=== PATIENT | female | born 1955 | race Caucasian/White ===

== ENCOUNTER → 2021-09-05 10:56 | Outpatient (CLI) | payer MEDICARE, BC, SELFPAY ==
--- NOTE | ~2021-09-05 | DEXA_ITS ---
Bone Density Report Name: Janelle Berry Age: 66 Sex: Female Ethnicity: White Date of : 1955 Indication: postmenopausal; screening for osteoporosis; hysterectomy; Referring Provider: BENNETT, ELLIE Lauren Study: Bone densitometry was performed. Exam Date: September 05, 2021 Accession number: [id number] Bone Density: Region BMD T-score Z-score Classification AP Spine (L1-L4) 1.017 -0.3 1.6 Normal Femoral Neck (Left) 0.713 -1.2 0.4 Osteopenia Total Hip (Left) 0.919 -0.2 1.2 Normal Femoral Neck (Right) 0.707 -1.3 0.3 Osteopenia Total Hip (Right) 0.874 -0.6 0.8 Normal Total Hip Mean 0.897 -0.4 1.0 Normal World Health Organization criteria for BMD impression classify patients as: Normal (T-score at or above -1.0), Osteopenia (T-score between -1.0 and -2.5), or Osteoporosis (T-score at or below -2.5). 10-year Fracture Risk(1): Major Osteoporotic Fracture 8.4% Hip Fracture 0.8% Reported Risk Factors: [place] (), Neck BMD=0.707, BMI=33.9 (1) FRAX(R) Version 3.08. Fracture probability calculated for an untreated patient. Fracture probability may be lower if the patient has received treatment. Previous Exams: Region Exam Age BMD T-score BMD Change BMD Change Date g/cm2 vs Baseline vs Previous AP Spine(L1-L4) 09/05/2021 66 1.017 -0.3 -0.055* 0.042* 08/13/2018 63 0.976 -0.6 -0.097* 0.033* 08/07/2016 61 0.942 -1.0 -0.130* -0.083* 07/15/2013 57 1.026 -0.2 -0.047* -0.010 10/29/2009 54 1.036 -0.1 -0.037* -0.037* 03/16/2006 50 1.072 0.2 Total Hip(Left) 09/05/2021 66 0.919 -0.2 -0.085* 0.031* 08/13/2018 63 0.889 -0.4 -0.116* -0.042* 08/07/2016 61 0.931 -0.1 -0.074* -0.104* 07/15/2013 57 1.034 0.8 0.030* 0.079* 10/29/2009 54 0.955 0.1 -0.049* -0.049* 03/16/2006 50 1.004 0.5 Total Hip(Right) 09/05/2021 66 0.874 -0.6 -0.091* 0.030* 08/13/2018 63 0.844 -0.8 -0.121* -0.022 08/07/2016 61 0.866 -0.6 -0.099* -0.115* 07/15/2013 57 0.981 0.3 0.016 0.032* 10/29/2009 54 0.949 0.1 -0.016 -0.016 03/16/2006 50 0.965 0.2 *Denotes significance at 95% confidence level, LSC for AP Spine = 0.022 g/cm2, LSC for Total Hip = 0.027 g/cm2 Clinical Information Provided by Patient:
== END ==
PROVIDERS: PCP Internal Medicine; Visit Provider Internal Medicine
DX: Z78.0 Asymptomatic menopausal state (principal); M81.0 Age-related osteoporosis without current pathological fracture; M85.89 Other specified disorders of bone density and structure, multiple sites
CPT/HCPCS: 77080

== ENCOUNTER 2022-02-20 12:39 | Inpatient (IN) | payer MEDICARE, BC, SELFPAY ==
[2022-02-20] VITALS (14 sets, daily range): BP systolic 133–156; BP diastolic 60–74; PULSE 54–68; RESP 6–18; TEMP 36–36.8; O2SAT 97–100; BMI 33.2
--- NOTE | ~2022-02-20 | CT_ITS ---
EXAMINATION: CT brain wo con DATE: 02/20/2022 14:37 INDICATION: Syncope. Head injury. TECHNIQUE: Computed tomography (CT) of the head was performed without intravenous contrast. The mA wa s adjusted according to patient size. Iterative reconstruction technique was employed. The dose-lengt h product was 605.33 mGy-cm. COMPARISON: None FINDINGS: There is no intracranial hemorrhage, acute infarction, or abnormal intracranial mass lesion . There are scattered areas of low attenuation in the cerebral white matter, which is within normal l imits for the patient's age. The ventricles are normal in size. The orbits are normal. There is mild mucosal thickening in the ethmoid sinuses. There is a small right mastoid effusion. IMPRESSION: 1. Normal aging brain. Reviewed, dictated and finalized at location A. IMPRESSION: 1. Normal aging brain.
--- NOTE | ~2022-02-20 | XR_ITS ---
EXAMINATION: XR chest 2V DATE: 02/20/2022 14:05 INDICATION: Weakness. TECHNIQUE: Frontal and lateral views of the chest were obtained. COMPARISON: Chest 2 views 12/07/2008 FINDINGS: There is chronic mild elevation of right hemidiaphragm. There is mild atelectasis at the roland ng bases. No pleural effusion or pneumothorax. The heart size is normal. There is a moderate-sized hi atal hernia. Surgical clips in the right upper quadrant are likely from cholecystectomy. IMPRESSION: 1. Mild atelectasis at the lung bases. 2. Moderate-sized hiatal hernia. Reviewed, dictated and finalized at location A.
--- NOTE | 2022-02-20 12:45 | ECG_ITS ---
Measurements Intervals [place] Rate: 61 P: 49 GA: 155 QRS: -42 QRSD: 94 T: -2 QT: 409 QTc: 414 Interpretive Statements SINUS RHYTHM LEFTWARD AXIS LOW QRS VOLTAGE IN PRECORDIAL LEADS PATTERN CONSISTENT WITH PULMONARY DISEASE NO PREVIOUS ECG AVAILABLE FOR COMPARISON Electronically Signed On 02-20-2022 15:53:05 CDT by Isaias Cordova M.D.
--- NOTE | 2022-02-20 13:00 | PC.NURSE ---
Infection Control Nurse notified. No further precautions needed after speaking with Infection Control.
[2022-02-20 13:23] LABS: Basophils Percent Auto 0.3 % (0.2-1.2); Eosinophils Absolute Auto 0.1 K/mm3 (0-0.3); Eosinophils Percent Auto 0.6 % (0-4.4); Hematocrit 43.5 % (37.0-47.0); Hemoglobin 15.2 g/dL (12.0-15.0); Immature Granulocyte Absolute 0.05 K/mm3 (0.00-0.031); Immature Granulocyte Percent A 0.4 % (0-0.5); Lymphocytes Absolute Auto 2.45 K/mm3 (0.9-3.2); Lymphocytes Percent Auto 19.8 % (18.3-44.2); Mean Corpuscular HGB Conc 34.9 g/dl (32-36); Mean Corpuscular Volume 85.8 fl (80-100); Mean Platelet Volume 9.6 fl (7.4-10.4); Monocytes Absolute Auto 1.2 K/mm3 (0.1-0.6); Monocytes Percent Auto 9.4 % (2.6-8.5); Neutrophils Absolute Auto 8.6 K/mm3 (1.3-6.7); Neutrophils Percent Auto 69.5 % (45.5-73.1); Platelet Count Result 323 k/mm3 (150-375); Red Blood Count 5.07 M/mm3 (4.2-5.4); Red Cell Distribution Width 13.3 % (11.5-14.5); White Blood Count 12.4 K/mm3 (4.5-10.0)
[2022-02-20 13:50] LABS: Alanine Aminotransferase 37 U/L (4-35); Albumin Level 4.1 g/dL (3.5-5.1); Alkaline Phosphatase 98 U/L (38-126); Anion Gap 12 mmol/L (8-16); Aspartate Amino Transferase 40 U/L (14-36); Bilirubin,Total 0.8 mg/dL (0.2-1.3); Blood Urea Nitrogen 55 mg/dL (7-17); Calcium 8.8 mg/dL (8.4-10.2); Carbon Dioxide 26 mmol/L (22-30); Chloride 97 mmol/L (98-107); Estimated CRCL calculation 18 ml/min; Estimated Glomerular Filt Rate 18; Glucose 125 mg/dL (65-110); Potassium 2.7 mmol/L (3.4-5.0); Sodium 135 mmol/L (137-145)
--- NOTE | 2022-02-20 14:19 | ED.GENADULT ---
HPI - General Adult General Chief complaint: Fall Stated complaint: fall, struck head, LOC Time Seen by Provider: 02/20/22 14:06 Source: patient and RN notes reviewed Mode of arrival: ambulatory Limitations: no limitations History of Present Illness HPI narrative: This is a 66 year old female with history of hypertension who presents for evaluation of weakness. Patient developed nausea, vomiting and diarrhea 2-3 days ago when she was out of the country. Her vomiting and diarrhea lasted for 24 hours, and she denies having vomiting or diarrhea today. She is having nausea with eating and drinking. She denies abdominal pain, fever, chills, chest pain or shortness of breath. she does reports weakness with walking. She also states 2 days ago she fell and she hit her head. She still has posterior headache after falling. She rates her headache as 6/10. Related Data Home Medications Medication Instructions Recorded Confirmed omeprazole 40 mg capsule,delayed 40 mg PO DAILY PRN 08/24/21 02/20/22 release quinapril 40 mg tablet 40 mg PO HS 08/24/21 02/20/22 simvastatin 40 mg/5 mL (8 mg/mL) 40 mg PO HS 08/24/21 02/20/22 oral suspension fluticasone propionate 1 spray INTRANASAL BID PRN 02/20/22 02/20/22 Allergies Allergy/AdvReac Type Severity Reaction Status Date / Time No Known Allergies Allergy Unknown Verified 02/20/22 17:48 Review of Systems Review of Systems: All systems reviewed & are unremarkable except as noted in HPI and below PMFSH Past Medical History Medical History (Updated 02/20/22 @ 21:32 by Sona Howard MD) Hypertension Family History Family History (Updated 08/24/21 @ 11:01 by Eveline Catalan) Father Skin cancer Hypertension Sibling Hypertension Grandparent Diabetes mellitus Grandparent No problems noted. Social History Social History (Updated 08/24/21 @ 10:59 by Eveline Catalan) Smoking status: Never smoker Second hand tobacco smoke exposure: Yes ( prior to November 2021) Alcohol intake: current Drinks per week: 0 Alcohol use details: one mixed drink per year Substance use: never Spiritual care concerns: No Exam Const: General: no acute distress and alert Orientation/consciousness: patient oriented x3 Eyes: EOM: EOMs intact bilaterally Resp: Effort & Inspection: normal respiratory effort and no retractions Auscultation: clear to auscultation bilaterally Cardio: Rate: regular rate Rhythm: regular rhythm Heart sounds: no murmurs GI: GI Palp: Yes Soft to palpation, No Tenderness to palpation present (GI) and No Guarding due to palpation present (GI) Auscultation: normal bowel sounds : General: Yes no CVA tenderness Back/Spine/Pelvis: Back: no CVA tenderness Skin: General skin exam: normal color Rashes: no rashes Neuro: General: patient oriented x3, moves all extremities and CN's II-XI intact bilaterally Psych: Mental Status: mental status grossly normal Affect: normal affect Course Reevaluation(s) Reevaluation #1: I Discussed with patient that she will need to be admitted for acute kidney failure, dehydration. She denies any abdominal pain and her exam is benign. No imaging of abdomen needed at this time. she will receive IVF with potassium supplementation. Date: 02/20/22 Vital Signs Vital signs: Vital Signs Temperature 96.8 F L 02/20/22 12:42 Pulse Rate 67 02/20/22 12:42 Respiratory Rate 14 02/20/22 12:42 Blood Pressure 156/69 H 02/20/22 12:42 Pulse Oximetry 98 02/20/22 12:42 Temperature 96.8 F L 02/20/22 12:42 Pulse Rate 64 02/20/22 16:45 Respiratory Rate 16 02/20/22 16:45 Blood Pressure 137/74 02/20/22 16:01 Pulse Oximetry 98 02/20/22 16:45 Medical Decision Making Vital Signs Vital Signs: Vital Signs Temperature 96.8 F L 02/20/22 12:42 Pulse Rate 67 02/20/22 12:42 Respiratory Rate 14 02/20/22 12:42 Blood Pressure 156/69 H 02/20/22 12:42 Pulse Oxim
--- NOTE | 2022-02-20 14:27 | PC.NURSE ---
Pt in ct
[2022-02-20] MEDS: ONDANSETRON INJ 4 MG/2 ML VIAL IV PUSH (14:43)
[2022-02-20] MEDS: PANTOPRAZOLE SODIUM IV 40 MG VIAL IV PUSH (14:43)
[2022-02-20] MEDS: LACTATED RINGERS 1,000 ML 999 ML IV CONT (14:43)
[2022-02-20] MEDS: POTASSIUM CHLORIDE INJ 40 MEQ in SODIUM CHLORIDE 0.9% IV 500 ML 130 MEQ IVPB (14:44)
[2022-02-20] MEDS: POTASSIUM CHLORIDE 20 MEQ TABLET 40 MEQ PO (14:44)
[2022-02-20 15:03] LABS: Add Urine Microscopic? YES; Appearance Urine Cloudy (Clear); Bacteria Urine Trace /hpf; Bilirubin Urine Negative (Negative); Blood Urine 1+ (Negative); Color Urine Yellow (Yellow); Glucose Urine UA Negative (Negative); Ketones Urine Negative (Negative); Leukocyte Esterase Ur 3+ LEU/UL (Negative); Mucus Urine Rare /lpf; Nitrate Urine Negative (Negative); Protein Urine Negative (Negative); Specific Grav Ur 1.009 (1.001-1.035); Squamous Epithelial Cell Urine Many /hpf (Few); Urobilinogen Urine Negative mg/dL (<2.0); WBC Urine 31-50 /hpf
--- NOTE | 2022-02-20 16:42 | PC.NURSE ---
Attempted report, RN refused
--- NOTE | 2022-02-20 17:30 | PM.IMHP ---
H&P: HPI History of Present Illness Date/Time: 02/20/22 17:30 Chief Complaint: Weakness. Narrative: This is a 66-year-old female with hypertension, hyperlipidemia, and history of breast cancer who presented to the emergency department from home for evaluation of weakness. She was recently in [facility] and while there she developed GI symptoms including nausea and vomiting last and profuse diarrhea all day on Sunday. She was not able to really stay hydrated or eat much for couple of days and she reports having a syncopal episode on Sunday afternoon at her hotel in which she struck the back of her head. She was able to get some veln-aqb-aalyshd medications to help with her symptoms and she traveled back to the [place] late Sunday evening. Despite no longer having vomiting or diarrhea, she continues to feel extremely weak and fatigued. She has been getting lightheaded and dizzy with position changes, especially when standing up. Her appetite has not returned. She has also noticed a decrease in urine output. Today her labs show an increase in BUN and creatinine in did give of an acute kidney injury and she is being admitted in this setting for rehydration. She denies fever, chills, sweats, chest pain, shortness of breath, and dysuria. Review of Systems Review of Systems: Twelve systems were reviewed and are negative except for as per HPI. [facility] Past Medical History Medical History (Updated 02/20/22 @ 22:23 by Chelita Michele PA-C) Cancer of right breast (2008) Status post wide excision and chemoradiation. Hyperlipemia Hypertension Surgical History Surgical History (Updated 02/20/22 @ 22:20 by Chelita Michele PA-C) History of breast surgery (12/2008) Right breast wide local excision with sentinel lymph node biopsy. History of cholecystectomy (1999) History of total vaginal hysterectomy (02/2018) With posterior repair of rectocele and enterocele as well as trans obturator taping. Family History Family History Father Skin cancer Hypertension Sibling Hypertension Grandparent Diabetes mellitus Grandparent No problems noted. Social History Social History (Updated 02/20/22 @ 22:21 by Chelita Michele PA-C) Social History: Surrogate decision maker: Malini Arevalo, daughter. Code status: Full code. Smoking status: Never smoker Second hand tobacco smoke exposure: Yes ( prior to November 2021) Alcohol intake: current Drinks per week: 0 Alcohol use details: one mixed drink per year Substance use: never Spiritual care concerns: No Meds Home Medications and Allergies Home Medications Medication Instructions Recorded Confirmed Type omeprazole 40 mg capsule,delayed 40 mg PO DAILY PRN 08/24/21 02/20/22 History release quinapril 40 mg tablet 40 mg PO HS 08/24/21 02/20/22 History simvastatin 40 mg/5 mL (8 mg/mL) 40 mg PO HS 08/24/21 02/20/22 History oral suspension fluticasone propionate 1 spray INTRANASAL BID PRN 02/20/22 02/20/22 History Allergies Allergy/AdvReac Type Severity Reaction Status Date / Time No Known Allergies Allergy Unknown Verified 02/20/22 17:48 Vital Signs Vital Signs - 24 hr 02/20/22 12:42 02/20/22 14:26 02/20/22 14:38 Temperature 96.8 F L Pulse Rate 67 65 60 Respiratory Rate 14 16 13 Blood Pressure 156/69 H 140/61 Pulse Oximetry 98 100 100 02/20/22 14:44 02/20/22 14:45 02/20/22 15:02 Temperature Pulse Rate 61 59 L 62 Respiratory Rate 10 L 6 L 12 Blood Pressure 144/62 H Pulse Oximetry 98 97 97 02/20/22 15:15 02/20/22 15:30 02/20/22 15:45 Temperature Pulse Rate 62 63 61 Respiratory Rate 15 16 18 Blood Pressure Pulse Oximetry 97 98 100 02/20/22 16:00 02/20/22 16:01 02/20/22 16:45 Temperature Pulse Rate 68 54 L 64 Respiratory Rate 9 L 11 L 16 Blood Pressure 137/74 Pulse Oximetry 100 100 98 02/20/22 22:00 Temper
--- NOTE | 2022-02-20 17:46 | ADMGEN ---
This patient, Janelle Berry, was admitted to [facility] Surg Room 326-01. Patient/family oriented to hospital policies and general routines including ID bracelet, bed and alarms, visiting hours, pain management, procedures, bathroom and other care routines, personal items, smoking policy, room service/diet, and visiting hours. Information on how to activate the Rapid Response Team has been discussed. Patient/Family are encouraged to report perceived risks to care and to ask questions if they do not understand what they are told or what they should do.
[2022-02-20] MEDS: LACTATED RINGERS 1,000 ML 125 ML IV CONT (18:20)
[2022-02-20 22:57] LABS: Anion Gap 10 mmol/L (8-16); Blood Urea Nitrogen 46 mg/dL (7-17); Calcium 8.3 mg/dL (8.4-10.2); Carbon Dioxide 26 mmol/L (22-30); Chloride 104 mmol/L (98-107); Estimated CRCL calculation 24 ml/min; Estimated Glomerular Filt Rate 25; Glucose 106 mg/dL (65-110); Magnesium 2.1 mg/dL (1.6-2.3); Potassium 3.5 mmol/L (3.4-5.0); Sodium 140 mmol/L (137-145)
[2022-02-21] VITALS (12 sets, daily range): BP systolic 121–190; BP diastolic 57–87; PULSE 57–78; RESP 18–20; TEMP 36.1–37.2; O2SAT 94–97
[2022-02-21 06:20] LABS: Basophils Percent Auto 0.4 % (0.2-1.2); Eosinophils Absolute Auto 0.1 K/mm3 (0-0.3); Eosinophils Percent Auto 1.2 % (0-4.4); Hematocrit 39.5 % (37.0-47.0); Hemoglobin 13.3 g/dL (12.0-15.0); Immature Granulocyte Absolute 0.02 K/mm3 (0.00-0.031); Immature Granulocyte Percent A 0.3 % (0-0.5); Lymphocytes Absolute Auto 2.06 K/mm3 (0.9-3.2); Mean Corpuscular HGB Conc 33.7 g/dl (32-36); Mean Corpuscular Hemoglobin 30.1 pg (26-34); Mean Corpuscular Volume 89.4 fl (80-100); Mean Platelet Volume 9.4 fl (7.4-10.4); Monocytes Absolute Auto 0.8 K/mm3 (0.1-0.6); Neutrophils Absolute Auto 4.6 K/mm3 (1.3-6.7); Neutrophils Percent Auto 60.1 % (45.5-73.1); Platelet Count Result 249 k/mm3 (150-375); Red Blood Count 4.42 M/mm3 (4.2-5.4); Red Cell Distribution Width 13.6 % (11.5-14.5); White Blood Count 7.6 K/mm3 (4.5-10.0)
[2022-02-21 06:37] LABS: Alanine Aminotransferase 32 U/L (4-35); Albumin Level 3.2 g/dL (3.5-5.1); Alkaline Phosphatase 75 U/L (38-126); Anion Gap 5 mmol/L (8-16); Aspartate Amino Transferase 34 U/L (14-36); Bilirubin,Total 0.9 mg/dL (0.2-1.3); Blood Urea Nitrogen 37 mg/dL (7-17); Calcium 8.3 mg/dL (8.4-10.2); Carbon Dioxide 29 mmol/L (22-30); Chloride 106 mmol/L (98-107); Estimated CRCL calculation 26 ml/min; Estimated Glomerular Filt Rate 28; Glucose 109 mg/dL (65-110); Potassium 3.2 mmol/L (3.4-5.0); Sodium 140 mmol/L (137-145)
--- NOTE | 2022-02-21 13:36 | PM.IMPN ---
Progress Note: A&P Assessment and Plan (1) Acute kidney failure: Qualifiers: Acute renal failure type: unspecified Qualified Code(s): N17.9 - Acute kidney failure, unspecified Code(s): N17.9 - Acute kidney failure, unspecified Status: Acute Assessment and Plan: -HILLARY -continue IV fluids for hydration -monitor labs and vital signs for trends. -orthostatic vital signs every shift. -avoid nephrotoxic agents -accurate I&O -consider nephrology consult if no improvement. (2) Dehydration: Code(s): E86.0 - Dehydration Status: Acute Assessment and Plan: - HILLARY - Plan is as detailed above. (3) Syncope: Qualifiers: Syncope type: unspecified Qualified Code(s): R55 - Syncope and collapse Code(s): R55 - Syncope and collapse Status: Acute Assessment and Plan: -etiology thought to be due to HILLARY manifested as dehydration. -concern for hypotension versus orthostasis. Do orthostatic vital signs every shift. -continue telemetry (4) Gastroenteritis: Code(s): K52.9 - Noninfective gastroenteritis and colitis, unspecified Status: Acute Assessment and Plan: - Likely viral in etiology. - Symptoms have improved in fact she has not had vomiting or diarrhea for 2 days. (5) Hypokalemia: Code(s): E87.6 - Hypokalemia Status: Acute Assessment and Plan: -replace with supplemental. -trend labs -magnesium is 2.0. (6) Hypertension: Qualifiers: Hypertension type: unspecified Qualified Code(s): I10 - Essential (primary) hypertension Code(s): I10 - Essential (primary) hypertension Status: Chronic Assessment and Plan: - Blood pressures were reviewed and they are stable. -holding ESTEVAN-inhibitor secondary to renal failure. Time Spent With Patient Time with patient: 15 - 25 minutes Subjective Date/time seen: 02/21/22 4330 This pt. is examined at the bedside today in interval assessment after being admitted for HILLARY manifested as Dehydration, syncopal episode thought to be secondary to her dehydration and having decreased appetite and UOP. She endorsed dizziness and lightheadedness when standing and changing position upon first arriving to the ER. She was recently in [facility] and developed N/V/D, two days prior to returning to the country. Although her symptoms of N/V/D have subsided, she does still have some intermittent dizziness and lightheadedness. The pt. today states that her symptoms are improving, but she still feels weak. Her renal function has improved today with a creatinine of 1.8 BUN of 37 this is an improvement from creatinine of 2.1 yesterday. Her potassium still remains low at 3.2 she will be dosed with oral potassium today. In addition her transaminases were both elevated yesterday but returned to normal today. White blood cell count on presentation was 12.4 this has trended down to 7.6. Patient's urine and emergency room showed 3+ leuks was noted to be cloudy and 1+ blood. Antibiotics were not ordered at that time so will be ordered now pending culture results. In addition we will obtain orthostatic blood pressures every shift. Review of Systems Review of Systems: All systems reviewed & are unremarkable except as noted in HPI and below Exam Narrative: General: Moderately ill-appearing female sitting up in bed. Weight: 79.8 kg. BMI: 33.2. HEENT: PERRL, EOMI. Sclerae anicteric. Tacky mucous membranes. Neck: Supple. Respiratory: Lungs are clear to auscultation bilaterally. Cardiovascular: Regular rate and rhythm with S1-S2. No murmur, rub, or gallop. Gastrointestinal: Abdomen is soft, nontender, and nondistended with positive bowel sounds. Skin: Warm and dry. No rash or lesions on limited exam. Extremities: No cyanosis, clubbing, or edema. Radial and pedal pulses intact. Neurological: Alert. Cranial nerves 2-12 are grossly intact. No gross focal
[2022-02-21] MEDS: LACTATED RINGERS 1,000 ML 125 ML IV CONT (16:45)
[2022-02-21] MEDS: POTASSIUM CHLORIDE 20 MEQ TABLET 40 MEQ PO (16:50)
[2022-02-22] VITALS (9 sets, daily range): BP systolic 150–212; BP diastolic 73–94; PULSE 55–73; RESP 18; TEMP 36.3–36.8; O2SAT 97–98
[2022-02-22 06:49] LABS: Basophils Percent Auto 0.5 % (0.2-1.2); Eosinophils Absolute Auto 0.1 K/mm3 (0-0.3); Eosinophils Percent Auto 1.2 % (0-4.4); Hematocrit 42.5 % (37.0-47.0); Hemoglobin 14.1 g/dL (12.0-15.0); Immature Granulocyte Absolute 0.02 K/mm3 (0.00-0.031); Immature Granulocyte Percent A 0.3 % (0-0.5); Lymphocytes Absolute Auto 2.17 K/mm3 (0.9-3.2); Lymphocytes Percent Auto 28.8 % (18.3-44.2); Mean Corpuscular HGB Conc 33.2 g/dl (32-36); Mean Corpuscular Hemoglobin 29.4 pg (26-34); Mean Corpuscular Volume 88.5 fl (80-100); Mean Platelet Volume 9.3 fl (7.4-10.4); Monocytes Absolute Auto 0.6 K/mm3 (0.1-0.6); Monocytes Percent Auto 8.5 % (2.6-8.5); Neutrophils Absolute Auto 4.6 K/mm3 (1.3-6.7); Neutrophils Percent Auto 60.7 % (45.5-73.1); Platelet Count Result 253 k/mm3 (150-375); Red Cell Distribution Width 13.3 % (11.5-14.5); White Blood Count 7.5 K/mm3 (4.5-10.0)
[2022-02-22 07:17] LABS: Alanine Aminotransferase 31 U/L (4-35); Albumin Level 3.5 g/dL (3.5-5.1); Alkaline Phosphatase 70 U/L (38-126); Anion Gap 6 mmol/L (8-16); Aspartate Amino Transferase 36 U/L (14-36); Bilirubin,Total 0.8 mg/dL (0.2-1.3); Blood Urea Nitrogen 25 mg/dL (7-17); Calcium 8.4 mg/dL (8.4-10.2); Carbon Dioxide 28 mmol/L (22-30); Chloride 106 mmol/L (98-107); Estimated CRCL calculation 40 ml/min; Estimated Glomerular Filt Rate 45; Glucose 114 mg/dL (65-110); Magnesium 1.6 mg/dL (1.6-2.3); Sodium 140 mmol/L (137-145)
--- NOTE | 2022-02-22 09:42 | PM.DS ---
DS: Admitting Diagnosis Discharge Date February 22, 2022 Admitting Diagnosis 1. Acute kidney failure 2. Dehydration 3. Syncope 4. Gastroenteritis 5. Hypokalemia 6. Hypertension DS: Discharge Diagnosis Discharge Diagnosis (1) Acute kidney failure: Qualifiers: Acute renal failure type: unspecified Qualified Code(s): N17.9 - Acute kidney failure, unspecified Code(s): N17.9 - Acute kidney failure, unspecified Status: Acute Assessment and Plan: -HILLARY -continue IV fluids for hydration -monitor labs and vital signs for trends. -orthostatic vital signs every shift. -avoid nephrotoxic agents -accurate I&O -consider nephrology consult if no improvement. -02/22/2022: Date of discharge -patient's renal function has improved. Today her creatinine is 1.20 and her BUN is 25. She appears to be well hydrated. Patient is not orthostatic. Her ESTEVAN-inhibitor had been held secondary to her acute renal failure, so it is being re-initiated today is patient's blood pressure has risen. It will be continued at home. Patient will be instructed to follow-up with her primary care physician within the next week. (2) Dehydration: Code(s): E86.0 - Dehydration Status: Resolved Assessment and Plan: - HILLARY - Plan is as detailed above. -February 22, 2022: Date of discharge -patient's renal function has improved, and dehydration has been resolved. Patient is no longer symptomatic of any pain, cramping, nausea, vomiting, diarrhea. She is tolerating a full diet and able to take in adequate p.o. intake. She is stable for discharge at this time. (3) Syncope: Qualifiers: Syncope type: unspecified Qualified Code(s): R55 - Syncope and collapse Code(s): R55 - Syncope and collapse Status: Resolved Assessment and Plan: -etiology thought to be due to HILLARY manifested as dehydration. -concern for hypotension versus orthostasis. Do orthostatic vital signs every shift. -continue telemetry -February 22, 2022: Date of discharge -patient has remained without any dizziness, lightheadedness, syncopal episodes during this hospitalization. She has remained normal sinus rhythm on telemetry. No ectopy or ischemia appreciated on telemetry tracings. As she is asymptomatic no further assessments or referrals/consultations need to be performed at this time. Orthostatics have been negative. Patient has been adequately rehydrated with IV fluids, as well as she has been eating without difficulty taking in her own oral nutrition and fluids. She is stable for discharge at this time with a normal neurological assessment. Suspicion the initial syncopal episode was due to acute kidney injury manifested as dehydration. (4) Gastroenteritis: Code(s): K52.9 - Noninfective gastroenteritis and colitis, unspecified Status: Resolved Assessment and Plan: - Likely viral in etiology. - Symptoms have improved in fact she has not had vomiting or diarrhea for 2 days. -February 22, 2022: Date of discharge - Patient's symptoms are resolved. She denies any current symptoms of nausea, vomiting, diarrhea. She has no abdominal cramping or pain. She has tolerated p.o. liquids and solid foods without difficulty. She is stable for discharge at this time. No restrictions on diet. (5) Hypokalemia: Code(s): E87.6 - Hypokalemia Status: Resolved Assessment and Plan: -replace with supplemental. -trend labs -magnesium is 2.0. -February 22, 2022: Date of discharge -resolved. Potassium today is 4.0. (6) Hypertension: Qualifiers: Hypertension type: unspecified Qualified Code(s): I10 - Essential (primary) hypertension Code(s): I10 - Essential (primary) hypertension Status: Chronic Assessment and Plan: - Blood pressures were reviewed and they are stable. -holding ESTEVAN-inhibitor secondary to renal failure. -February 22, 2022: Date of discharge -patient does currentl
[2022-02-22] MEDS: lisinopriL 20 MG TABLET 40 MG PO (10:02)
[2022-02-22] MEDS: hydrALAZINE HCL 20 MG/ML VIAL 10 MG IV PUSH (11:52)
== END 2022-02-22 13:50 | disposition home or self-care (01) | DRG 683 ==
LOC: ANHED 17:07 → ANH3MEDSUR 17:33
PROVIDERS: Emergency Medicine; Physician Assistant; Admitting Provider Family Medicine; Emergency Provider General Practice; PCP Internal Medicine; Visit Provider Nurse Practitioner Adult Health
DX: N17.9 Acute kidney failure, unspecified (principal); N39.0 Urinary tract infection, site not specified; E86.0 Dehydration; R55 Syncope and collapse; K52.9 Noninfective gastroenteritis and colitis, unspecified; E87.6 Hypokalemia; I10 Essential (primary) hypertension; Z85.3 Personal history of malignant neoplasm of breast; E78.5 Hyperlipidemia, unspecified; Z83.3 Family history of diabetes mellitus; Z82.49 Family history of ischemic heart disease and other diseases of the circulatory system; Z80.8 Family history of malignant neoplasm of other organs or systems; Z79.899 Other long term (current) drug therapy; B95.1 Streptococcus, group B, as the cause of diseases classified elsewhere
CPT/HCPCS: 36415; 70450; 71046; 80048; 80053; 81001; 83735; 85025; 87086; 87088; 87147; 93005; 96361; 96365; 96366; 96367; 96375; 99285; A9270; C9113; G0378; J0360; J0696; J2405; J3480; J7040; J7120

== ENCOUNTER 2025-03-09 09:12 | Outpatient (CLI) | payer MEDICARE, BC, SELFPAY ==
--- NOTE | ~2025-03-09 | MM_ITS ---
EXAMINATION: MM diagnostic john BI w ender HISTORY: 69-year-old woman with a personal history of right-sided breast cancer, post lumpectomy, erna motherapy and radiation in 2008 presents for diagnostic evaluation. TECHNIQUE: Craniocaudal and mediolateral oblique 3-D tomosynthesis images were obtained and synthetic 2-D images were generated. CAD analysis was submitted and interpreted. COMPARISON: 03/06/2024 and dating back to 03/16/2006 BREAST PARENCHYMAL COMPOSITION: Not Dense. There are scattered areas of fibroglandular density. FINDINGS: MAMMOGRAPHIC FINDINGS: Stable parenchymal pattern without suspicious microcalcifications, unexpected architectural distortio n, discrete masses or significant asymmetry. Microclip centrally within the postoperative architectural distortion of the upper outer right breast , consistent with patient's history. Punctate calcifications detected bilaterally, vascular in origin and benign in appearance. IMPRESSION: No mammographic/tomographic evidence to suggest the presence of recurrent or residual malignancy. Resumption of yearly mammography is recommended. BI-RADS Category 2: Benign finding(s). Reviewed, dictated and finalized at location A. IMPRESSION: No mammographic/tomographic evidence to suggest the presence of recurrent or re sidual malignancy. Resumption of yearly mammography is recommended. BI-RADS Category 2: Benign finding(s).
== END 2025-03-09 09:13 | disposition home or self-care (01) ==
PROVIDERS: PCP Internal Medicine; Visit Provider Obstetrics & Gynecology Gynecology
DX: Z12.31 Encounter for screening mammogram for malignant neoplasm of breast (principal); Z85.3 Personal history of malignant neoplasm of breast; Z92.3 Personal history of irradiation; Z92.21 Personal history of antineoplastic chemotherapy
CPT/HCPCS: 77062; 77066; G0279

== ENCOUNTER 2025-03-11 10:47 | Outpatient (CLI) | payer MEDICARE, BC, SELFPAY ==
--- NOTE | ~2025-03-11 | US_ITS ---
EXAMINATION: US venous doppler [facility] DATE: 03/11/2025 11:30 INDICATION: Left lower limb pain and swelling TECHNIQUE: Grayscale ultrasound images without and with compression and Doppler ultrasound images of the left lower extremity veins were obtained. COMPARISON: None. FINDINGS: The visualized portions of left common femoral vein, profunda (deep) femoral vein, femoral vein, popl iteal vein, peroneal veins, posterior tibial veins, gastrocnemius vein and greater saphenous vein out flow are patent. Dumont's cyst at the left popliteal fossa measuring 5.6 x 1.1 x 2.9 cm. IMPRESSION: 1. No deep venous thrombosis in the left lower limb. 2. Moderate-sized Dumont's cyst. Reviewed, dictated and finalized at location A.
--- OUTSIDE RECORDS SUMMARY | 2025-03-11 12:35 | XMS_ITS | Encounter Summary ---
Author Organization [facility] Address [address] [place] [address] Care Team Providers Care Admissions Recruiter Name Role Phone John Ceja MD Primary Care Provider [phone] Encounter Details Date Type Department Care Team (Latest Contact Info) Description 04/26/2009 Outpatient Historical [facility] [place] [address] [place] [address] Maty Townsend MD NO ADDRESS ON FILE Malignant Neoplasm of Upper-Outer Quadrant of Female Breast (CMS/HCC) Social History Tobacco Use Types Packs/Day Years Used Date Smoking Tobacco: Never Assessed Comments Unknown Sex and Gender Information Value Date Recorded Sex Assigned at Female 10/03/2024 4:52 PM PREPRESS TECHNICIAN Legal Sex Female 5:42 AM PREPRESS TECHNICIAN Gender Identity Female 10/03/2024 4:52 PM PREPRESS TECHNICIAN Sexual Orientation Not on file documented as of this encounter Plan of Treatment Not on file documented as of this encounter Visit Diagnoses Diagnosis Malignant neoplasm of upper-outer quadrant of female breast (CMS/HCC) Malignant neoplasm of upper-outer quadrant of female breast documented in this encounter Care Teams Admissions Recruiter Relationship Specialty Start Date End Date John Ceja MD [address] [facility] [address] [place] [id number] PCP - General 01/20/09 documented as of this encounter
--- OUTSIDE RECORDS SUMMARY | 2025-03-11 12:35 | XMS_ITS | Clinical Summary ---
Author Organization [facility] Address [address] [place] [address] Phone Care Team Providers Care Refinery Operator Assistant Name Role Phone Provider, None Primary Care Provider Unavailabl e Allergies No known active allergies Medications quinapril (ACCUPRIL) 40 MG Tablet Take 40 mg by mouth every evening. Active simvastatin (ZOCOR) 20 MG Tablet Take 20 mg by mouth every evening. Active Active Problems No known active problems Social History Tobacco Use Types Packs/Day Years Used Date Smoking Tobacco: Never Smokeless Tobacco: Never Alcohol Use Standard Drinks/Week Comments Not Asked 0 (1 standard drink = 0.6 oz pur e alcohol) Comments No Sex and Gender Information Value Date Recorded Sex Assigned at Not on file Legal Sex Female 11:10 AM CDT Gender Identity Not on file Sexual Orientation Not on file Last Filed Vital Signs Vital Sign Reading Time Taken Comments Blood Pressure 170/76 07/18/2016 12:12 PM CDT Pulse 87 07/18/2016 12:12 PM CDT Temperature 37 C (98.6 F) 07/18/2016 12:12 PM CDT Respiratory Rate 20 07/18/2016 12:1 2 PM CDT Oxygen Saturation 99% 07/18/2016 12: 12 PM CDT Inhaled Oxygen Concentration - - Weight 54.8 kg (120 lb 12.8 oz) 016 12:12 PM CDT Height 157.5 cm (5' 2 ) 07/18/2016 12:1 2 PM CDT Body Mass Index 22.09 07/18/2016 12:12 PM CDT Plan of Treatment Health Maintenance Due Date Last Done Comments DEXA Bone Density 1955 Hepatitis C Virus (HCV) Screening 1955 TdaP Immunization 1955 Mammogram 1964 Colonoscopy 1999 Colorectal Cancer Screening 1999 Cologuard 2004 Immunochemical Fecal Occult Blood 2004 Pneumococcal Immunization (5 0+ years) (1 of 1 - PCV) 2004 Zoster Immunization (1 of 2) 2004 Influenza Immunization (#1) 2024 SARS-COV-2 Immunization (1 - 2023-25 season) 2024 Respiratory Syncytial Virus (RSV) Immunization (Adult) (1 - 1-dose 75+ series) 2029 Hepatitis B Immunization Aged Out No longer eligible based on patient's age to complete this topic Meningococcal Immunization (ACWY) Aged Out No longer eligible based on patient's age to complete this topic Rotavirus Immunization Aged Out No lo nger eligible based on patient's age to complete this topic Insurance Care Teams Refinery Operator Assistant Relationship Specialty Start Date End Date Provider, None [place] PCP - General 02/19/20
--- OUTSIDE RECORDS SUMMARY | 2025-03-11 12:35 | XMS_ITS | Encounter Summary ---
Author Organization [employer] Address 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 Breast (CMS/HCC) Social History Tobacco Use Types Packs/Day Years Used Date Smoking Tobacco: Never Alcohol Use Standard Drinks/Week Comments Yes 0 (1 standard drink = 0.6 oz pur e alcohol) rare Comments No Sex and Gender Information Value Date Recorded Sex Assigned at Female 10/03/2024 4:52 PM TABLE GAMES FLOOR SUPERVISOR Legal Sex Female 5:42 AM TABLE GAMES FLOOR SUPERVISOR Gender Identity Female 10/03/2024 4:52 PM TABLE GAMES FLOOR SUPERVISOR Sexual Orientation Not on file documented as of this encounter Plan of Treatment Not on file documented as of this encounter Visit Diagnoses Diagnosis Malignant neoplasm of upper-outer quadrant of female breast (CMS/HCC) Malignant neoplasm of upper-outer quadrant of female breast documented in this encounter Care Teams Ornament Stitcher Relationship Specialty Start Date End Date John Ceja MD [address] [facility] [address] [place] [id number] PCP - General 01/20/09 documented as of this encounter
--- OUTSIDE RECORDS SUMMARY | 2025-03-11 12:35 | XMS_ITS | Clinical Summary ---
Author Organization [facility] Address [address] [place] [address] Care Team Providers Care Allergist/Md Name Role Phone Ellie eCja MD Primary Care Provider [phone] Social History Tobacco Use Types Packs/Day Years Used Date Smoking Tobacco: Never Assessed Comments Unknown Sex and Gender Information Value Date Recorded Sex Assigned at Not on file Legal Sex Female 6:27 PM CDT Gender Identity Not on file Sexual Orientation Not on file Plan of Treatment Health Maintenance Due Date Last Done Comments Colorectal Cancer Screening Colonoscopy (10 Years) 1954 Hepatitis C 1972 DTaP, Tdap and Td Vaccines (1 - Tdap) 1973 Zoster Vaccines (1 of 2) 2004 Annual Medicare Wellness Visit 2019 COVID-19 Vaccine ( season) 2024 11/10/2023, 10/31/2023, 12/25/2022, Additional history exists Mammogram Screening 03/06/2026 03/06/2024, 01/22/2023, 01/17/2022, Additional history exists Pneumococcal Vaccine: 50+ Years Completed 11/25/2021, 11/09/2020 RSV Immunization or 60+ Years Completed 08/31/2023, 08/30/2023 Dexa Scan (General) Completed 12/04/2024 Meningococcal B Vaccine Aged Out No l onger eligible based on patient's age to complete this topic Meningococcal Vaccine Aged Out No troy sofia eligible based on patient's age to complete this topic RSV Immunizations Under 20 Months Aged Out No longer eligible based on patient's age to complete this topic Procedures Procedure Name Priority Date/Time Associated Diagnosis Comments BONE DENSITY/DEXA Routine 12/04/2024 10: 28 AM ACADEMIC SUPPORT COORDINATOR Age-related osteoporosis without current pathological fracture from Last 3 Months or Most Recently Relevant to Health Maintenance Results * BONE DENSITY/DEXA (12/04/2024 10:28 AM ACADEMIC SUPPORT COORDINATOR) Anatomical Region Laterality Modality Bone Bone Density 12/05/2024 7:24 AM ACADEMIC SUPPORT COORDINATOR Impressions 12/05/2024 7:25 AM ACADEMIC SUPPORT COORDINATOR IMPRESSION: WHO Classification: Osteopenia RECOMMENDATIONS: All patients should ensure an adequate intake of dietary calcium and vitamin D. The NOF recommend adults under the age of 50 need 1000 mg of calcium and 400-800 IU of vitamin D daily. Effective therapy for the prevention and treatment of osteoporosis include bisphosphonates. Follow-up: People with diagnosed cases of osteoporosis or at high risk for fracture should have regular bone mineral density test. For patients eligible for Medicare, routine testing is allowed once every 2 years. Testing frequency can be increased to one year for patients who have rapidly progressing disease, those who are receiving or discontinuing medical therapy to restore bone mass, or have additional risk factors. Referred By: ELLIE CEJA Interpreted By: Aram Escobar MD, 12/05/2024 7:24 AM Narrative 12/05/2024 7:25 AM ACADEMIC SUPPORT COORDINATOR [facility] [address] [address] [place] [address] EXAMINATION: BONE DENSITY/DEXA INDICATIONS: Age-related osteoporosis without current pathological fracture TECHNIQUE: DEXA bone mineral density evaluation was performed in the AP projection over the lumbar spine and both hips utilizing standard imaging techniques. ASSESSMENT: The BMD measured at the AP spine L1-L4 is 1.004 g/cm? with a T-score of -0.4. The BMD measured at the left femoral neck is 0.715 g/cm? with a T-score of -1.2. The BMD measured at the left hip is 0.903 g/cm? with a T-score of -0.3. The BMD measured at the right femoral neck is 0.757 g/cm? with a T-score of - 0.8. The BMD measured at the right hip is 0.891 g/cm? with a T-score of -0.4. FRAX 10-year fracture risk: Major Osteoporotic Fracture: 14% Hip Fracture: 1.5% Procedure Note Aram Escobar MD - 12/05/2024 [facility] [address] [place] [address] EXAMINATION: BONE DENSITY/DEXA INDICATIONS: Age-related osteoporosis without current pathologicalfracture TECHNIQUE: DEXA bone mineral density evaluation was performed in the APprojection over the lumbar spine and both hips utilizing standard imagingtechniques. ASSESSMENT: The BMD measured at the AP spine L1-L4 is 1.004 g/cm? with a T-score of-0.4. The BMD measured at the left femoral neck is 0.715 g/cm? with a T-score of-1.2. The BMD measured at the left hip is 0.903 g/cm? with a T-score of -0.3. The BMD measured at the right femoral neck is 0.757 g/cm? with a T-scoreof -0.8. The BMD measured at the right hip is 0.891 g/cm? with a T-score of -0.4. FRAX 10-year fracture risk: Major Osteoporotic Fracture: 14% Hip Fracture: 1.5% IMPRESSION: WHO Classification: Osteopenia RECOMMENDATIONS: All patients should ensure an adequate intake of dietary calcium andvitamin D. The NOF recommend adults under the age of 50 need 1000 mg ofcalcium and 400-800 IU of vitamin D daily. Effective therapy for theprevention and treatment of osteoporosis include bisphosphonates. Follow-up: People with diagnosed cases of osteoporosis or at high risk for fractureshould have regular bone mineral density test. For patients eligible forMedicare, routine testing is allowed once every 2 years. Testing frequencycan be increased to one year for patients who have rapidly progressingdisease, those who are receiving or discontinuing medical therapy torestore bone mass, or have additional risk factors. Referred By: ELLIE CEJA Interpreted By: Aram Escobar MD, 12/05/2024 7:24 AM Ellie TERRAZAS Final Result from Last 3 Months or Most Recently Relevant to Health Maintenance Insurance [facility] Advance Directives Documents on File Type Date Recorded Patient Cop Expl anation Advance Directives and Living Will 09/02/2013 12:00 AM ADVANCED DIRECTIVES Care Teams Allergist/Md Relationship Specialty Start Date End Date Ellie Ceja MD [address] [address] PCP - General INTERNAL MEDICINE 10/23/24
--- OUTSIDE RECORDS SUMMARY | 2025-03-11 12:35 | XMS_ITS | Encounter Summary ---
Author Organization [facility] Address [address] [place] [address] Care Team Providers Care Therapy Aide Name Role Phone John Ceja MD Primary Care Provider Encounter Details Date Type Department Care Team (Latest Contact Info) Description 03/25/2009 Outpatient Historical [facility] [place] [address] [place] [address] Mayt Townsend MD NO ADDRESS ON FILE Malignant Neoplasm of Upper-Outer Quadrant of Female Breast (CMS/HCC) Social History Tobacco Use Types Packs/Day Years Used Date Smoking Tobacco: Never Assessed Comments Unknown Sex and Gender Information Value Date Recorded Sex Assigned at Female 10/03/2024 4:52 PM STUDENT SERVICES REPRESENTATIVE Legal Sex Female 5:42 AM STUDENT SERVICES REPRESENTATIVE Gender Identity Female 10/03/2024 4:52 PM STUDENT SERVICES REPRESENTATIVE Sexual Orientation Not on file documented as of this encounter Plan of Treatment Not on file documented as of this encounter Visit Diagnoses Diagnosis Malignant neoplasm of upper-outer quadrant of female breast (CMS/HCC) Malignant neoplasm of upper-outer quadrant of female breast documented in this encounter Care Teams Therapy Aide Relationship Specialty Start Date End Date John Ceja MD [address] [facility] [address] [place] [id number] PCP - General 01/20/09 documented as of this encounter
--- OUTSIDE RECORDS SUMMARY | 2025-03-11 12:35 | XMS_ITS | CONTINUITY OF CARE DOCUMENT ---
Author Name kelly mendoza Address Unknown Organization [facility] Address [address] [facility] [address] [place] [address] Phone [phone] Care Team Providers Care Senior Peoplesoft Developer Name Role Phone Gautam CABRERA, Dick Unavailable MINAL CABRERA, ELLIE Unavailable MINAL CABRERA, ELLIE Unavailable [phone] INSURANCE PROVIDERS Payer name Policy type / Coverage type Sasser red constitution party ID [facility] [id number]
--- OUTSIDE RECORDS SUMMARY | 2025-03-11 12:35 | XMS_ITS | Clinical Summary ---
[facility] Address [address] [place] [address] Phone Care Team Providers Care Full Stack Python Developer Name Role Phone John Ceja MD Primary Care Provider [phone] Allergies No known active allergies Medications omeprazole (PriLOSEC) 40 mg Capsule, Delayed Release(E.C.) Take 40 mg by mouth 1 time daily as needed. Active rosuvastatin (CRESTOR) 20 mg tablet Take 20 mg by mouth daily. Active losartan (COZAAR) 25 mg tablet Take 25 mg by mouth daily. Active lisinopriL (PRINIVIL) 40 mg tablet Take 40 mg by mouth daily. Active coenzyme Q10 Capsule Take 10 mg by mouth daily. Active Active Problems Problem Noted Date Diagnosed Date History of right breast cancer 03/05/2023 Right arm pain 01/05/2010 Breast Cancer stage I grade III, ER + 05/14/2009 Other Malaise and Fatigue since chemo 05/14/2009 Muscle Pain in legs since chemo 05/14/2009 Encounters Date Type Department Care Team Description 01/07/2025 External Device Data [facility] ABSTRACTION Provider, Abstract 01/06/2025 External Device Data [facility] ABSTRACTION Provider, Abstract from Last 3 Months Immunizations Immunization Administration Dates Next Due (SPIKEVAX) (12 YRS UP PRIMAR Y SERIES) COVID-19 VACCINE - MRNA-1273(PF) 100 MCG/0.5 ML IM SUSP 01/19/2021 021 Family History Medical History Relation Name Comments Hypertension Father Heart Disease Mother Hypertension Mother Breast Cancer Neg Hx Ovarian Cancer Neg Hx Relation Name Status Comments Father Alive Mother Alive Social History Tobacco Use Types Packs/Day Years Used Date Smoking Tobacco: Never Tobacco Cessation:Counseling Given: Not Answered Alcohol Use Standard Drinks/Week Comments Yes 0 (1 standard drink = 0.6 oz pur e alcohol) rare Comments No Sex and Gender Information Value Date Recorded Sex Assigned at Female 10/03/2024 4:52 PM MIXING PLANT OPERATOR Legal Sex Female 5:42 AM MIXING PLANT OPERATOR Gender Identity Female 10/03/2024 4:52 PM MIXING PLANT OPERATOR Sexual Orientation Not on file Occupation Industry Job Start Date Job End Date Not on file Not on file Not on file Not on file Last Filed Vital Signs Vital Sign Reading Time Taken Comments Blood Pressure 122/78 03/10/2024 11:17 AM CDT Pulse 72 03/10/2024 11:17 AM CDT Temperature 36.3 C (97.4 F) 03/10/2024 11:17 AM CDT Respiratory Rate 18 03/10/2024 11:17 AM CDT Oxygen Saturation 95% 03/10/2024 11:17 AM CDT Inhaled Oxygen Concentration - - Weight 71.7 kg (158 lb 1.6 oz) 03/10/2024 11:17 AM CDT Height 156.2 cm (5' 1.5 ) 03/10/2024 11:17 AM CD T Body Mass Index 29.39 03/10/2024 11:17 AM CDT Plan of Treatment Health Maintenance Due Date Last Done Comments Pre-Diabetes and Diabetes Screening 1954 DTAP/TDAP/TD VACCINES (1 - Tdap) 1973 FIT-DNA Q 3 years 1999 FIT/FOBT Q 1 year 1999 Flex Sig/CT Colonography Q 5 years 1999 ZOSTER VACCINE (1 of 2) 2004 RSV VACCINE (60+ or ) (1 - Risk 60-74 years 1-dose series) 2014 INFLUENZA VACCINE (#1) 2024 , 09/10/2018, 09/28/2017, Additional history exists COVID-19 Vaccine (2 - 2023-2 5 season) 2024 01/19/2021 BREAST CANCER SCREENING 03/06/2025 03/06/20 24, 01/22/2023, 01/17/2022, Additional history exists COLORECTAL SCREENING 07/23/2025 07/23/2015 Colorectal Cancer Screening 07/23/2025 OSTEOPOROSIS SCREENING 09/05/2026 09/05/2021 PNEUMOCOCCAL VACCINE 50+ YEARS Completed 11/25/2021 , 11/09/2020 Procedures Procedure Name Priority Date/Time Associated Diagnosis Comments MAMMO 3D NASEEM DIAGNOSTIC BILAT W OR WO CAD Routine 03/06/2024 12:23 PM CDT from Last 3 Months or Most Recently Relevant to Health Maintenance Results * MAMMO DIAG BILAT 3D NASEEM W OR WO CAD (03/06/2024 12:23 PM CDT) Anatomical Region Laterality Modality Breast Bilateral Mammography 03/06/2024 12:2 3 PM CDT Impressions 03/06/2024 4:46 PM CDT IMPRESSION: Negative bilateral diagnostic mammogram. Recommend routine followup. OVERALL FINAL ASSESSMENT: BI-RADS CATEGORY 1: Negative DICTATION LOCATION: [facility] 03/06/2024 4:46 PM CDT BILATERAL DIAGNOSTIC DIGITAL MAMMOGRAM WITH 3D TOMOSYNTHESIS AND CAD DATE: 03/06/2024 12:23 PM HISTORY: Postlumpectomy right breast. COMPARISON: 04/21/2023, 02/20/2018. TECHNIQUE: A bilateral diagnostic mammogram was performed. Low-dose full-field digital breast tomosynthesis examination was performed with 2D and 3D acquisitions. Examination is read in conjunction with computer aided detection. BREAST COMPOSITION: The breasts are heterogeneously dense, which may obscure small masses. FINDINGS: No new masses, suspicious calcifications, or areas of asymmetry or distortion are identified. Postlumpectomy changes in the upper outer right breast are stable. The images were reviewed using the CAD system. Procedure Note Magdalena Patel MD - 03/06/2024 BILATERAL DIAGNOSTIC DIGITAL MAMMOGRAM WITH 3D TOMOSYNTHESIS AND CAD DATE: 03/06/2024 12:23 PM HISTORY: Postlumpectomy right breast. COMPARISON: 04/21/2023, 02/20/2018. TECHNIQUE: A bilateral diagnostic mammogram was performed. Low-dose full-field digital breast tomosynthesis examination was performed with 2D and 3D acquisitions. Examination is read in conjunction with computer aided detection. BREAST COMPOSITION: The breasts are heterogeneously dense, which may obscure small masses. FINDINGS: No new masses, suspicious calcifications, or areas of asymmetry or distortion are identified. Postlumpectomy changes in the upper outer right breast are stable. The images were reviewed using the CAD system. IMPRESSION: Negative bilateral diagnostic mammogram. Recommend routine followup. OVERALL FINAL ASSESSMENT: BI-RADS CATEGORY 1: Negative DICTATION LOCATION: [facility] Millarenny Quinn DO MAMMO ORDERABLES Final Resu lt from Last 3 Months or Most Recently Relevant to Health Maintenance Insurance MEDICARE PART [facility] Care Teams Full Stack Python Developer Relationship Specialty Start Date End Date John Ceja MD [address] [place] [address] [address] [place] [address] PCP - General 01/20/09
== END 2025-03-11 10:48 | disposition home or self-care (01) ==
PROVIDERS: PCP Internal Medicine; Visit Provider Internal Medicine
DX: M71.22 Synovial cyst of popliteal space [Baker], left knee (principal)
CPT/HCPCS: 93971

== ENCOUNTER 2025-04-11 12:13 | Outpatient (CLI) | payer MEDICARE, BC, SELFPAY ==
--- NOTE | ~2025-04-11 | MR_ITS ---
MRI of the left knee Clinical history: Pain Technique: Coronal proton density and proton density-weighted images, sagittal proton-density and T2 fat-sat images, and axial proton-density fat-saturated images were acquired. Findings: Anterior and posterior cruciate ligaments are intact. Medial collateral ligament and the la teral collateral ligament complex are intact. Popliteus tendon is intact. There is probable horizontal tear of the anterior horn of the lateral meniscus. Questionable horizont al tear of the posterior horn of the medial meniscus. There is mild chondral malacia patella. There is mild to moderate chondral malacia the femoral trochl ea. There is moderate chondromalacia of the medial femoral condyle. There is probable reactive enthes opathic marrow edema in the central tibia at the ACL insertion region. Extensor mechanism is intact. Small joint effusion present with small to moderate Dumont's cyst. Impression: Probable horizontal tear of the anterior horn of the lateral meniscus. Questionable horizontal tear o f the posterior horn of the medial meniscus. 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 Small joint effusion with small to moderate Dumont's cyst. Reviewed, dictated and finalized at location . Impression: Probable horizontal tear of the anterior horn of the lateral meniscus. Question able horizontal tear of the posterior horn of the medial meniscus. 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 Small joint effusion with small to moderate Dumont's cyst.
--- OUTSIDE RECORDS SUMMARY | 2025-04-11 12:17 | XMS_ITS | Data Portability ---
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 Plan of Treatment Reminders Order Date Submit Date Provider Last Modified By Organization Details Last Modified Time Details Appointments None recorded. Lab lipid panel, serum 025 [facility] Outpatient Lab, [address] [place], [address], 5 05:27:01 CMP, serum or plasma 025 [facility] Out[facility], [address] [place], [address], 5 05:27:04 TSH, serum or plasma 025 [facility], [address] [place], [address], 5 05:27:08 T4, free, serum 025 025 [facility], [address] [place], [address], 5 05:27:07 vitamin B12, serum 025 [facility], [address] [place], [address], 5 05:27:07 CBC w/ auto diff 025 [facility], [address] [place], [address], 5 05:27:05 vitamin D, 25-hydrox y, total, serum [facility] Out[facility] Lab, [address] [place] [address], [address], 4 05:01:34 lipid panel, serum 024 [facility], [address] [place] [address], [address], 4 05:01:31 TSH, serum or plasma [email or web address] [facility] Outpatient Lab, [address] [place] [address], [address], 4 10:57:32 T4, free, serum [id number] [facility] Outpatient Lab, [address] [place] [address], [address], 4 10:57:32 vitamin B12, serum 024 [facility] Out[facility], [address] [place] [address], [address], 4 05:01:33 magnesium , serum or plasma 024 [facility] Out[facility], [address] [place] [address], [address], 4 05:01:32 CBC w/ auto diff 024 [facility], [address] [place] [address], [address], 4 05:01:33 CMP, serum or plasma 024 [facility], [address] [place] [address], [address], 4 05:01:32 lipid panel, serum 023 023 [facility] Out[facility], [address] [place], [address], 3 18:51:30 CMP, serum or plasma 023 023 [facility] Lab, [address] [place], [address], 3 18:51:32 vitamin B12, serum [id number] [place] [address] Lab, [address] [place], [address], 3 17:42:21 vitamin B12, serum 023 023 [facility] Lab, [address] [place], [address], 3 18:51:34 magnesium , serum or plasma 023 023 [facility] Lab, [address] [place], [address], 3 18:51:32 CBC w/ auto diff 023 023 [facility] Lab, [address] [place], [address], 3 18:51:33 Referral None recorded. Procedures None recorded. Surgeries None recorded. Imaging None recorded. Medication Orders None recorded. Patient TargetsNo targets recorded. Patient Instructions Encounter Date Encounter Id Patient Instructions Last Modified By Organization Details Last Modified Time 05/25/2023 [id number] dementia rating scale-2* [email or web address] Not available 05/25/2023 11:55:20 alcohol misuse* [email or web address] Not available 05/25/2023 11:55:19 depression screening* [email or web address] Not available 05/25/2023 11:55:19 multi-dimensiona l health assessment questionnaire* [email or web address] Not available 05/25/2023 11:55:20 Personalized a lt Plan and Screening Recommendations Advance Directives - Do you have one? Yes Advance Directives - Do we have your advance directive on file in your health record? No, please bring in a copy at your earliest convenience Primary Prevention/Interven tion (prevents or decreases the chance of common diseases from occurring) Smoking Risk: Non Smoker Alcohol Misuse Screening: Negative Weight: Appropriate Physical activity: Need more exercise/physical activity Nutrition: Good Average Fall Risk (screened today): Low Vaccines Pneumococcal: Ordered Recommended today Recommended today, but you have declined No further needed Influenza: Your next one in the fall of this year Chronic Disease Risks Stroke: Low Risk Intermediate Risk I have no recommendations Act sotero diagnosis, Continue current treatment plan Heart Attack: Low risk Intermediate Risk I have no recommendations Act sotero diagnosis, Continue current treatment plan Clogging of the Arteries: Low risk Intermediate Risk I have no recommendations Act sotero diagnosis, Continue current treatment plan Diabetes: Low Risk I have no recommendations Secondary Prevention/Interven tion (detects treatable diseases before they may cause symptoms, disability, or ) Breast Cancer Screening with mammogram: Cervical/Uterine/Ov arcenio Cancer Screening: No screening necessary Osteoporosis Screening: Date Screening Last Performed: Colon Cancer Screening: Colonoscopy Date Screening Last Performed: Eye Disease Screening: Dementia Risk: Low I have no recommendations Depression Screening: Negative [email or web address] Not available 05/25/2023 11:44:34 Medicare [facility] risk assessment follow-up doing well. Follow-up for hypertension-GERD -hyperlipidemia. All clinically stable. Overall is doing well. Check blood work in form of CBC, CMP, B12, Magnesium and lipid panel. Continue on current Rx and follow-up in six months. [email or web address] Not available 05/25/2023 11:54:55 11/30/2023 [id number] Hypertension -hyperlipidemia -primary malignant neoplasm of the right breast -GERD all clinically stable. Check blood work on next visit. Was recent blood work looked good. Continue on current Rx follow-up in six months.Standard immunizations of RSV, COVID, influenza and shingles as recommended. Portions of the record may have been created with voice recognition software. Occasional wrong-word or zrykn-[id number] substitutions may have occurred due to the inherent limitations of voice recognition software. Read the chart carefully and recognize, using context, where substitutions have occurred. Not available 11/30/2023 11:38:44 05/29/2024 [id number] Follow-up hypertension, hyperlipidemia and GERD all clinically stable. Will continue on current medications. Check blood work consisting of CBC, CMP, lipid, thyroid, B12, magnesium level and vitamin-D level. Continue on current Rx follow-up in six months Additional Orders and/or Directives: 1. bone density scan 2. Get copies of her most recent mammograms done over at [place] Next Appointment: 6 Months Approximate Date: 09/26/2024 Portions of the record may have been created with voice recognition software. Occasional wrong-word or bzexm-r-[id number] substitutions may have occurred due to the inherent limitations of voice recognition software. Read the chart carefully and recognize, using context, where substitutions have occurred. [email or web address] Not available 05/29/2024 10:59:03 12/04/2024 [id number] Follow-up essent ial hypertension, hyperlipidemia as well as GERD all clinically stable. Did have a COVID since the last examination. Still has some lingering generalized fatigue. Last blood work looked good with the exception of the B12 level was just marginally below 400 which although in normal limits may cause some symptomatology. He is still taking PPI inhibitors. Will recheck blood work to check to see if this has dropped further and may consider giving a trial of some B12 if necessary. Is clinically stable otherwise. Does need a bone density scan. Will follow-up in six months Additional Orders - Directives - Recommendations 1. bone density scan Additional Orders - Directives - Recommendations Follow Up: 5 Months Approximate Date: 05/03/2025 Portions of the record may have been created with voice recognition software. Occasional wrong-word or [id number] substitutions may have occurred due to the inherent limitations of voice recognition software. Read the chart carefully and recognize, using context, where substitutions have occurred. Created: Ellie Ceja M.D. 12.04.2024 02:05 PM [email or web address] Not available 12/04/2024 15:06:49 03/11/2025 [id number] Dumont's cyst lef t popliteal fossa. Will set up with orthopedist Additional Orders - Directives - Recommendations 1. Set up with orthopedics for left knee pain with possible ruptured popliteal cyst. 2. Send a copy of the venous Doppler report Keep Appointment: Sun 09:50 AM Smyth Portions of record are template driven. When necessary additional context will be provided. Additionally some portions have been created with voice recognition software. Occasional wrong-word or [id number]-[id number] substitutions may have occurred due to the inherent limitations of voice recognition software. Read the chart carefully and recognize, using context, where substitutions may have occurred. Created: Ellie Ceja M.D. 03.11.2025 04:01 PM [email or web address] Not available 03/11/2025 17:01:59 Reason for Referral None Reported. Results Created Date Observation Date Name Description Value Unit Range Abnormal Flag Note LastModifiedBy Organization Detail LastModifiedTime 05/25/2005/29/2023 LIPID PANEL , STAND TONNY cholesterol, total 140 mg/dL <200 normal Not Available [address], [address], 05/29/2023 18:51:30 05/25/2005/29/2023 LIPID PANEL , STAND TONNY HDL cholesterol 46 mg/dL > or = 50 low Not Available [address], [address], 05/29/2023 18:51:30 05/25/2005/29/2023 LIPID PANEL , STAND TONNY triglyceride s 80 mg/dL <150 normal Not Available [email or web address] [address], [address], 05/29/2023 18:51:30 05/25/2005/29/2023 LIPID PANEL , STAND TONNY LDL-choleste rol 78 mg/dL _(anastasia c) normal Refer ence range : <100 Ernesto able range <100 mg/dL for prima ry preve ntion ; <70 mg/dL for patie nts with CHD or diabe tic patie nts with > or = 2 CHD risk facto rs. LDL-C is now calcu lated using the [facility] kins calcu latio n, which is a valid ated novel metho d provi ding kim r accur acy than the Fried javed equat ion in the estim ation of LDL-C . Cat n SS et al. AGNES. 2013; 310(1 9): 2061- 2068 (http ://ed ucati on.Qu albam2p-labs. com/f aq/FA Q164) Not Available [facility] [address] [address] [address], [place], [address], 05/29/2023 18:51:30 05/25/20 23 05/29/2023 LIPID PANEL , STAND TONNY chol/HDLC ratio 3.0 (calc ) <5.0 normal Not Available [facility] [address] [address] [address], [place], [address], 05/29/2023 18:51:30 05/25/20 23 05/29/2023 LIPID PANEL , STAND TONNY non HDL cholesterol 94 mg/dL _(anastasia c) <130 normal For patie nts with diabe addi plus 1 major ASCVD risk facto r, treat ing to a non-H DL-C goal of <100 mg/dL (LDL- C of <70 mg/dL ) is consi dered a thera peuti c optio n. Not Available [facility] [address] [address] [address], [place], [address], 05/29/2023 18:51:30 05/25/2005/29/2023 SPECI MEN INTEG RITY COMPR OMISE D specimen integrity compromised Whole blood , unspu n or parti ally spun gel barri er tube was recei karol more than 6 hours since colle ction . A false eleva tion of K, Phos and LD as well as a false decre ase in gluco se may occur due to prolo nged conta ct with red cells . Not Available [facility] [address] [address] [address], [place], [address], 05/29/2023 18:51:31 05/25/20 23 05/29/2023 MAGNE SIUM magnesium 2.2 mg/dL 1.5-2. 5 normal Not Available [address] [address] [place], [address], 05/29/2023 18:51:32 05/25/20 23 05/29/2023 COMPR EHENS SOTERO METAB OLIC PANEL glucose 82 mg/dL 65-99 normal Fasti ng refer ence inter soha Not Available [address], [address], 05/29/2023 18:51:32 05/25/20 23 05/29/2023 COMPR EHENS SOTERO METAB OLIC PANEL urea nitrogen (BUN) 19 mg/dL 7-25 normal Not Available [address], [address], 05/29/2023 18:51:32 05/25/20 23 05/29/2023 COMPR EHENS SOTERO METAB OLIC PANEL creatinine 0.89 mg/dL 0.50-1 .05 normal Not Available [address], [address], 05/29/2023 18:51:32 05/25/20 23 05/29/2023 COMPR EHENS SOTERO METAB OLIC PANEL eGFR 71 mL/mi n/1.7 3m2 > or = 60 normal The eGFR is based on the CKD-E PI 2020 equat ion. To calcu late the new eGFR from a previ ous Creat inine or Cysta tin C resul t, go to https ://zara w.cherri bowiey.o marianne/melanie solis s/ kdoqi /gfr% 5Fcal culat or Not Available [address], [address], 05/29/2023 18:51:32 05/25/20 23 05/29/2023 COMPR EHENS SOTERO METAB OLIC PANEL BUN/creatini ne ratio NOT APPLIC ABLE (calc ) 6-22 Not Available [address], [address], 05/29/2023 18:51:32 05/25/20 23 05/29/2023 COMPR EHENS SOTERO METAB OLIC PANEL sodium 141 mmol/ L 135-14 6 normal Not Available [address], [address], 05/29/2023 18:51:32 05/25/20 23 05/29/2023 COMPR EHENS SOTERO METAB OLIC PANEL potassium 4.4 mmol/ L 3.5-5. 3 normal Not Available [address], [address], 05/29/2023 18:51:32 05/25/20 23 05/29/2023 COMPR EHENS SOTERO METAB OLIC PANEL chloride 106 mmol/ L 98-110 normal Not Available [address], [address], 05/29/2023 18:51:32 05/25/20 23 05/29/2023 COMPR EHENS SOTERO METAB OLIC PANEL carbon dioxide 23 mmol/ L 20-32 normal Not Available [address], [address], 05/29/2023 18:51:32 05/25/20 23 05/29/2023 COMPR EHENS SOTERO METAB OLIC PANEL calcium 9.8 mg/dL 8.6-10 .4 normal Not Available [address], [address], 05/29/2023 18:51:32 05/25/20 23 05/29/2023 COMPR EHENS SOTERO METAB OLIC PANEL protein, total 7.8 g/dL 6.1-8. 1 normal Not Available [address], [address], 05/29/2023 18:51:32 05/25/20 23 05/29/2023 COMPR EHENS SOTERO METAB OLIC PANEL albumin 4.4 g/dL 3.6-5. 1 normal Not Available [address], [address], 05/29/2023 18:51:32 05/25/20 23 05/29/2023 COMPR EHENS SOTERO METAB OLIC PANEL globulin 3.4 g/dL_ (calc ) 1.9-3. 7 normal Not Available [address], [address], 05/29/2023 18:51:32 05/25/20 23 05/29/2023 COMPR EHENS SOTERO METAB OLIC PANEL albumin/glob ulin ratio 1.3 (calc ) 1.0-2. 5 normal Not Available [address], [address], 05/29/2023 18:51:32 05/25/20 23 05/29/2023 COMPR EHENS SOTERO METAB OLIC PANEL bilirubin, total 0.7 mg/dL 0.2-1. 2 normal Not Available [address], [address], 05/29/2023 18:51:32 05/25/20 23 05/29/2023 COMPR EHENS SOTERO METAB OLIC PANEL alkaline phosphatase 102 U/L 37-153 normal Not Available [address] [address] [place], [address], 05/29/2023 18:51:32 05/25/20 23 05/29/2023 COMPR EHENS SOTERO METAB OLIC PANEL AST 20 U/L 10-35 normal Not Available [address], [address], 05/29/2023 18:51:32 05/25/20 23 05/29/2023 COMPR EHENS SOTERO METAB OLIC PANEL ALT 16 U/L 6-29 normal Not Available [address], [address], 05/29/2023 18:51:32 05/25/20 23 05/29/2023 CBC (INCL UDES DIFF/ PLT) white blood cell count 7.3 thous and/u L 3.8-10 .8 normal Not Available [address], [address], 05/29/2023 18:51:33 05/25/20 23 05/29/2023 CBC (INCL UDES DIFF/ PLT) red blood cell count 5.39 mir on/uL 3.80-5 .10 high Not Available [address], [address], 05/29/2023 18:51:33 05/25/20 23 05/29/2023 CBC (INCL UDES DIFF/ PLT) hemoglobin 16.0 g/dL 11.7-1 5.5 high Not Available [address], [address], 05/29/2023 18:51:33 05/25/20 23 05/29/2023 CBC (INCL UDES DIFF/ PLT) hematocrit 47.5 % 35.0-4 5.0 high Not Available [address], [address], 05/29/2023 18:51:33 05/25/20 23 05/29/2023 CBC (INCL UDES DIFF/ PLT) MCV 88.1 fL 80.0-1 00.0 normal Not Available [address], [address], 05/29/2023 18:51:33 05/25/20 23 05/29/2023 CBC (INCL UDES DIFF/ PLT) MCH 29.7 pg 27.0-3 3.0 normal Not Available [address], [address], 05/29/2023 18:51:33 05/25/20 23 05/29/2023 CBC (INCL UDES DIFF/ PLT) MCHC 33.7 g/dL 32.0-3 6.0 normal Not Available [address], [address], 05/29/2023 18:51:33 05/25/20 23 05/29/2023 CBC (INCL UDES DIFF/ PLT) RDW 12.6 % 11.0-1 5.0 normal Not Available [address], [address], 05/29/2023 18:51:33 05/25/20 23 05/29/2023 CBC (INCL UDES DIFF/ PLT) platelet count 257 thous and/u L 140-40 0 normal Not Available [address], [address], 05/29/2023 18:51:33 05/25/20 23 05/29/2023 CBC (INCL UDES DIFF/ PLT) MPV 11.1 fL 7.5-12 .5 normal Not Available [address], [address], 05/29/2023 18:51:33 05/25/20 23 05/29/2023 CBC (INCL UDES DIFF/ PLT) absolute neutrophils 4606 cells /uL 1500-7 800 normal Not Available [address], [address], 05/29/2023 18:51:33 05/25/20 23 05/29/2023 CBC (INCL UDES DIFF/ PLT) absolute lymphocytes 1956 cells /uL 850-39 00 normal Not Available [address], [address], 05/29/2023 18:51:33 05/25/20 23 05/29/2023 CBC (INCL UDES DIFF/ PLT) absolute monocytes 599 cells /uL 200-95 0 normal Not Available [address], [address], 05/29/2023 18:51:33 05/25/20 23 05/29/2023 CBC (INCL UDES DIFF/ PLT) absolute eosinophils 110 cells /uL 15-500 normal Not Available [facility] [address], [address], 05/29/2023 18:51:33 05/25/20 23 05/29/2023 CBC (INCL UDES DIFF/ PLT) absolute basophils 29 cells /uL 0-200 normal Not Available [facility] [address], [address], 05/29/2023 18:51:33 05/25/20 23 05/29/2023 CBC (INCL UDES DIFF/ PLT) neutrophils 63.1 % normal Not Available [facility] [address], [address], 05/29/2023 18:51:33 05/25/20 23 05/29/2023 CBC (INCL UDES DIFF/ PLT) lymphocytes 26.8 % normal Not Available [facility] [address], [address], 05/29/2023 18:51:33 05/25/20 23 05/29/2023 CBC (INCL UDES DIFF/ PLT) monocytes 8.2 % normal Not Available [facility] [address], [address], 05/29/2023 18:51:33 05/25/20 23 05/29/2023 CBC (INCL UDES DIFF/ PLT) eosinophils 1.5 % normal Not Available [facility] [address], [address], 05/29/2023 18:51:33 05/25/20 23 05/29/2023 CBC (INCL UDES DIFF/ PLT) basophils 0.4 % normal Not Available [facility] [address], [address], 05/29/2023 18:51:33 05/25/20 23 05/29/2023 VITAM IN B12 vitamin B12 375 pg/mL 200-11 00 normal Pleas e Note: Altho ugh the refer ence range for vitam in B12 is 200-1 100 pg/mL , it has been repor vinh that betwe en 5 and 10% of patie nts with value s betwe en 200 and 400 pg/mL may exper ience neuro psych iatri c and hemat ologi c abnor malit ies due to occul t B12 defic iency ; less than 1% of patie nts with value s above 400 pg/mL will have sympt oms. Not Available [employer] [address], [address], 05/29/2023 18:51:34 05/29/20 24 05/30/2024 LIPID PANEL , STAND TONNY cholesterol, total 159 mg/dL <200 normal Not Available [address], [address], 05/30/2024 05:01:31 05/29/20 24 05/30/2024 LIPID PANEL , STAND TONNY HDL cholesterol 44 mg/dL > or = 50 low Not Available [address], [address], 05/30/2024 05:01:31 05/29/20 24 05/30/2024 LIPID PANEL , STAND TONNY triglyceride s 116 mg/dL <150 normal Not Available [employer] [address] [place], [address], 05/30/2024 05:01:31 05/29/20 24 05/30/2024 LIPID PANEL , STAND TONNY LDL-choleste rol 94 mg/dL _(anastasia c) normal Refer ence range : <100 Ernesto able range <100 mg/dL for prima ry preve ntion ; <70 mg/dL for patie nts with CHD or diabe tic patie nts with > or = 2 CHD risk facto rs. LDL-C is now calcu lated using the [employer] kins calcu swethaxin n, which is a valid ated novel metho d lenai antonio martinez than the Fried javed equat ion in the estim ation of LDL-C . Cat meade SS et al. AGNES. 2013; 310(1 9): 2061- 2068 (http ://ed ucati on.Qu estm2p-labs. com/f aq/FA Q164) Not Available [employer] [address] [address] [place], [address], 05/30/2024 05:01:31 05/29/20 24 05/30/2024 LIPID PANEL , STAND TONNY chol/HDLC ratio 3.6 (calc ) <5.0 normal Not Available [address] [address] [place], [address], 05/30/2024 05:01:31 05/29/2005/30/2024 LIPID PANEL , STAND TONNY non HDL cholesterol 115 mg/dL _(anastasia c) <130 normal For patie nts with diabe addi plus 1 major ASCVD risk facto r, treat ing to a non-H DL-C goal of <100 mg/dL (LDL- C of <70 mg/dL ) is julianna phillips optio n. Not Available [employer] [address] [address] [place], [address], 05/30/2024 05:01:31 05/29/20 24 05/30/2024 TSH+F REE T4 TSH 2.72 mIU/L 0.40-4 .50 normal Not Available [facility] [address] [address] [place], [address], 05/30/2024 05:01:31 05/29/20 24 05/30/2024 TSH+F REE T4 T4, free 1.1 NG/dL 0.8-1. 8 normal Not Available [employer] [address] [address] [place], [address], 05/30/2024 05:01:31 05/29/20 24 05/30/2024 MAGNE SIUM magnesium 2.4 mg/dL 1.5-2. 5 normal Not Available [address], [address], 05/30/2024 05:01:32 05/29/20 24 05/30/2024 COMPR EHENS SOTERO METAB OLIC PANEL glucose 110 mg/dL 65-99 high Fasti ng refer ence inter soha For someo ne witho ut known diabe addi, a gluco se value betwe en 100 and 125 mg/dL is consi stent with predi abete s and shoul d be confi rmed with a follo w-up test. Not Available [address], [address], 05/30/2024 05:01:32 05/29/20 24 05/30/2024 COMPR EHENS SOTERO METAB OLIC PANEL urea nitrogen (BUN) 15 mg/dL 7-25 normal Not Available [address], [address], 05/30/2024 05:01:32 05/29/20 24 05/30/2024 COMPR EHENS SOTERO METAB OLIC PANEL creatinine 1.04 mg/dL 0.50-1 .05 normal Not Available [address], [address], 05/30/2024 05:01:32 05/29/20 24 05/30/2024 COMPR EHENS SOTERO METAB OLIC PANEL eGFR 58 mL/mi n/1.7 3m2 > or = 60 low Not Available [address], [address], 05/30/2024 05:01:32 05/29/20 24 05/30/2024 COMPR EHENS SOTERO METAB OLIC PANEL BUN/creatini ne ratio SEE NOTE: (calc ) 6-22 Not Repor vinh: BUN and Creat inine are withi n refer ence range . Not Available [facility] [address] [address] [place], [address], 05/30/2024 05:01:32 05/29/20 24 05/30/2024 COMPR EHENS SOTERO METAB OLIC PANEL sodium 141 mmol/ L 135-14 6 normal Not Available [address] [address] [place], [address], 05/30/2024 05:01:32 05/29/20 24 05/30/2024 COMPR EHENS SOTERO METAB OLIC PANEL potassium 4.3 mmol/ L 3.5-5. 3 normal Not Available [facility] [address] [address] [place], [address], 05/30/2024 05:01:32 05/29/20 24 05/30/2024 COMPR EHENS SOTERO METAB OLIC PANEL chloride 105 mmol/ L 98-110 normal Not Available [address] [address] [address] , [place], [address], 05/30/2024 05:01:32 05/29/20 24 05/30/2024 COMPR EHENS SOTERO METAB OLIC PANEL carbon dioxide 27 mmol/ L 20-32 normal Not Available [address] [address] [place], [address], 05/30/2024 05:01:32 05/29/20 24 05/30/2024 COMPR EHENS SOTERO METAB OLIC PANEL calcium 9.5 mg/dL 8.6-10 .4 normal Not Available [facility] [address] [address] [place], [address], 05/30/2024 05:01:32 05/29/20 24 05/30/2024 COMPR EHENS SOTERO METAB OLIC PANEL protein, total 7.7 g/dL 6.1-8. 1 normal Not Available [facility] [address] [address] [place], [address], 05/30/2024 05:01:32 05/29/20 24 05/30/2024 COMPR EHENS SOTERO METAB OLIC PANEL albumin 4.6 g/dL 3.6-5. 1 normal Not Available [address], [address], 05/30/2024 05:01:32 05/29/20 24 05/30/2024 COMPR EHENS SOTERO METAB OLIC PANEL globulin 3.1 g/dL_ (calc ) 1.9-3. 7 normal Not Available [address], [address], 05/30/2024 05:01:32 05/29/20 24 05/30/2024 COMPR EHENS SOTERO METAB OLIC PANEL albumin/glob ulin ratio 1.5 (calc ) 1.0-2. 5 normal Not Available [address], [address], 05/30/2024 05:01:32 05/29/20 24 05/30/2024 COMPR EHENS SOTERO METAB OLIC PANEL bilirubin, total 0.7 mg/dL 0.2-1. 2 normal Not Available [address], [address], 05/30/2024 05:01:32 05/29/20 24 05/30/2024 COMPR EHENS SOTERO METAB OLIC PANEL alkaline phosphatase 83 U/L 37-153 normal Not Available [facility] [address], [address], 05/30/2024 05:01:32 05/29/20 24 05/30/2024 COMPR EHENS SOTERO METAB OLIC PANEL AST 20 U/L 10-35 normal Not Available [address], [address], 05/30/2024 05:01:32 05/29/20 24 05/30/2024 COMPR EHENS SOTERO METAB OLIC PANEL ALT 17 U/L 6-29 normal Not Available [address], [address], 05/30/2024 05:01:32 05/29/20 24 05/30/2024 CBC (INCL UDES DIFF/ PLT) white blood cell count 7.5 thous and/u L 3.8-10 .8 normal Not Available [address], [address], 05/30/2024 05:01:33 05/29/20 24 05/30/2024 CBC (INCL UDES DIFF/ PLT) red blood cell count 5.56 mir on/uL 3.80-5 .10 high Not Available [address] [address], [address], 05/30/2024 05:01:33 05/29/20 24 05/30/2024 CBC (INCL UDES DIFF/ PLT) hemoglobin 16.5 g/dL 11.7-1 5.5 high Not Available [address], [address], 05/30/2024 05:01:33 05/29/20 24 05/30/2024 CBC (INCL UDES DIFF/ PLT) hematocrit 50.3 % 35.0-4 5.0 high Not Available [address], [address], 05/30/2024 05:01:33 05/29/20 24 05/30/2024 CBC (INCL UDES DIFF/ PLT) MCV 90.5 fL 80.0-1 00.0 normal Not Available [employer] [address], [address], 05/30/2024 05:01:33 05/29/20 24 05/30/2024 CBC (INCL UDES DIFF/ PLT) MCH 29.7 pg 27.0-3 3.0 normal Not Available [address], [address], 05/30/2024 05:01:33 05/29/20 24 05/30/2024 CBC (INCL UDES DIFF/ PLT) MCHC 32.8 g/dL 32.0-3 6.0 normal Not Available [address], [address], 05/30/2024 05:01:33 05/29/20 24 05/30/2024 CBC (INCL UDES DIFF/ PLT) RDW 12.3 % 11.0-1 5.0 normal Not Available [address], [address], 05/30/2024 05:01:33 05/29/20 24 05/30/2024 CBC (INCL UDES DIFF/ PLT) platelet count 247 thous and/u L 140-40 0 normal Not Available [address], [address], 05/30/2024 05:01:33 05/29/20 24 05/30/2024 CBC (INCL UDES DIFF/ PLT) MPV 10.7 fL 7.5-12 .5 normal Not Available [address], [address], 05/30/2024 05:01:33 05/29/20 24 05/30/2024 CBC (INCL UDES DIFF/ PLT) absolute neutrophils 4680 cells /uL 1500-7 800 normal Not Available [address], [address], 05/30/2024 05:01:33 05/29/20 24 05/30/2024 CBC (INCL UDES DIFF/ PLT) absolute lymphocytes 1905 cells /uL 850-39 00 normal Not Available [address], [address], 05/30/2024 05:01:33 05/29/20 24 05/30/2024 CBC (INCL UDES DIFF/ PLT) absolute monocytes 653 cells /uL 200-95 0 normal Not Available [address], [address], 05/30/2024 05:01:33 05/29/20 24 05/30/2024 CBC (INCL UDES DIFF/ PLT) absolute eosinophils 203 cells /uL 15-500 normal Not Available [address], [address], 05/30/2024 05:01:33 05/29/20 24 05/30/2024 CBC (INCL UDES DIFF/ PLT) absolute basophils 60 cells /uL 0-200 normal Not Available [address], [address], 05/30/2024 05:01:33 05/29/20 24 05/30/2024 CBC (INCL UDES DIFF/ PLT) neutrophils 62.4 % normal Not Available [address], [address], 05/30/2024 05:01:33 05/29/20 24 05/30/2024 CBC (INCL UDES DIFF/ PLT) lymphocytes 25.4 % normal Not Available [address], [address], 05/30/2024 05:01:33 05/29/20 24 05/30/2024 CBC (INCL UDES DIFF/ PLT) monocytes 8.7 % normal Not Available [address], [address], 05/30/2024 05:01:33 05/29/20 24 05/30/2024 CBC (INCL UDES DIFF/ PLT) eosinophils 2.7 % normal Not Available [address], [address], 05/30/2024 05:01:33 05/29/20 24 05/30/2024 CBC (INCL UDES DIFF/ PLT) basophils 0.8 % normal Not Available [employer] [address] [address] [place], [address], 05/30/2024 05:01:33 05/29/20 24 05/30/2024 VITAM IN B12 vitamin B12 340 pg/mL 200-11 00 normal Pleas e Note: Altho ugh the refer ence range for vitam in B12 is 200-1 100 pg/mL , it has been repor vinh that betwe en 5 and 10% of patie nts with value s betwe en 200 and 400 pg/mL may exper ience neuro psych iatri c and hemat ologi c abnor malit ies due to occul t B12 defic iency ; less than 1% of patie nts with value s above 400 pg/mL will have sympt oms. Not Available [employer] [address] [address] [place], [address], 05/30/2024 05:01:33 05/29/20 24 05/30/2024 VITAM IN D,25- OH,TO JANAY,I A vitamin D,25-oh,tota l,ia 37 NG/mL 30-100 normal Vitam in D Statu s 25-OH Vitam in D: Defic iency : <20 ng/mL Insuf ficie ncy: 20 - 29 ng/mL Optim al: > or = 30 ng/mL For 25-OH Vitam in D testi ng on patie nts on D2-crenshaw pplem entat ion and patie nts for whom quant itati on of D2 and D3 fract ions is requi red, the [facility] eD(TM ) 25-OH VIT D, (D2,D 3), LC/MS /MS is recom patti d: order code 92666 (francia ents >2yrs ). See Note 1 Note 1 For addit ional infor jono reed refer to http: //eliot Gardner stDia gnost ics.c om/fa q/FAQ 199 (This link is being provi ded for infor kushal vidales/ educjonathan bro purpo ses only. ) Not Available [email or web address] [address] [place], [address], 05/30/2024 05:01:34 12/08/19 25 12/09/2024 LIPID PANEL , STAND TONNY cholesterol, total 165 mg/dL <200 normal Not Available [facility] [address], [address], 12/09/2024 05:27:01 12/08/19 25 12/09/2024 LIPID PANEL , STAND TONNY HDL cholesterol 38 mg/dL > or = 50 low Not Available [facility] [address] [address] [place], [address], 12/09/2024 05:27:01 12/08/19 25 12/09/2024 LIPID PANEL , STAND TONNY triglyceride s 208 mg/dL <150 high If a non-f astin g speci men was colle cted, consi bruce repea t trigl yceri de testi ng on a fasti ng speci men if clini patricia indic ated. Chris hastings et al. J. of Clin. Lipid ol. 2015; 9:129 -169. Not Available [address], [address], 12/09/2024 05:27:01 12/08/19 25 12/09/2024 LIPID PANEL , STAND TONNY LDL-choleste rol 97 mg/dL _(anastasia c) normal Refer ence range : <100 Ernesto able range <100 mg/dL for prima ry preve ntion ; <70 mg/dL for patie nts with CHD or diabe tic patie nts with > or = 2 CHD risk facto rs. LDL-C is now calcu lated using the Cat n-Hop kins eloisau angie n, which is a valid ated novel charles shipley acy than the Fried javed equat ion in the estim ation of LDL-C . Cat meade SS et al. AGNES. 2013; 310(1 9): 2061- 2068 (http ://ed ucati on.Qu estDi iHookup Socials. com/f aq/FA Q164) Not Available [address] [address] [place], [address], 12/09/2024 05:27:01 12/08/19 25 12/09/2024 LIPID PANEL , STAND TONNY chol/HDLC ratio 4.3 (calc ) <5.0 normal Not Available [address] [address] [place], [address], 12/09/2024 05:27:01 12/08/19 25 12/09/2024 LIPID PANEL , STAND TONNY non HDL cholesterol 127 mg/dL _(anastasia c) <130 normal For patie nts with diabe addi plus 1 major ASCVD risk facto r, treat ing to a non-H DL-C goal of <100 mg/dL (LDL- C of <70 mg/dL ) is consi dered a thera peuti c optio n. Not Available [address], [address], 12/09/2024 05:27:01 12/08/19 25 12/09/2024 COMPR EHENS SOTERO METAB OLIC PANEL glucose 119 mg/dL 65-99 high Fasti ng refer ence inter soha For someo ne witho ut known diabe addi, a gluco se value betwe en 100 and 125 mg/dL is consi stent with predi abete s and shoul d be confi rmed with a follo w-up test. Not Available [address] [address] [place], [address], 12/09/2024 05:27:04 12/08/1912/09/2024 COMPR EHENS SOTERO METAB OLIC PANEL urea nitrogen (BUN) 18 mg/dL 7-25 normal Not Available [facility] [address] [address] [place], [address], 12/09/2024 05:27:04 12/08/19 25 12/09/2024 COMPR EHENS SOTERO METAB OLIC PANEL creatinine 1.06 mg/dL 0.60-1 .00 high Not Available [address], [address], 12/09/2024 05:27:04 12/08/19 25 12/09/2024 COMPR EHENS SOTERO METAB OLIC PANEL eGFR 57 mL/mi n/1.7 3m2 > or = 60 low Not Available [address], [address], 12/09/2024 05:27:04 12/08/19 25 12/09/2024 COMPR EHENS SOTERO METAB OLIC PANEL BUN/creatini ne ratio 17 (calc ) 6-22 normal Not Available [address], [address], 12/09/2024 05:27:04 12/08/19 25 12/09/2024 COMPR EHENS SOTERO METAB OLIC PANEL sodium 140 mmol/ L 135-14 6 normal Not Available [address], [address], 12/09/2024 05:27:04 12/08/19 25 12/09/2024 COMPR EHENS SOTERO METAB OLIC PANEL potassium 4.3 mmol/ L 3.5-5. 3 normal Not Available [address], [address], 12/09/2024 05:27:04 12/08/19 25 12/09/2024 COMPR EHENS SOTERO METAB OLIC PANEL chloride 106 mmol/ L 98-110 normal Not Available [address], [address], 12/09/2024 05:27:04 12/08/19 25 12/09/2024 COMPR EHENS SOTERO METAB OLIC PANEL carbon dioxide 25 mmol/ L 20-32 normal Not Available [address], [address], 12/09/2024 05:27:04 12/08/19 25 12/09/2024 COMPR EHENS SOTERO METAB OLIC PANEL calcium 9.8 mg/dL 8.6-10 .4 normal Not Available [address], [address], 12/09/2024 05:27:04 12/08/19 25 12/09/2024 COMPR EHENS SOTERO METAB OLIC PANEL protein, total 8.1 g/dL 6.1-8. 1 normal Not Available [address], [address], 12/09/2024 05:27:04 12/08/19 25 12/09/2024 COMPR EHENS SOTERO METAB OLIC PANEL albumin 4.4 g/dL 3.6-5. 1 normal Not Available [address], [address], 12/09/2024 05:27:04 12/08/19 25 12/09/2024 COMPR EHENS SOTERO METAB OLIC PANEL globulin 3.7 g/dL_ (calc ) 1.9-3. 7 normal Not Available [address], [address], 12/09/2024 05:27:04 12/08/19 25 12/09/2024 COMPR EHENS SOTERO METAB OLIC PANEL albumin/glob ulin ratio 1.2 (calc ) 1.0-2. 5 normal Not Available [address], [address], 12/09/2024 05:27:04 12/08/19 25 12/09/2024 COMPR EHENS SOTERO METAB OLIC PANEL bilirubin, total 0.6 mg/dL 0.2-1. 2 normal Not Available [address], [address], 12/09/2024 05:27:04 12/08/19 25 12/09/2024 COMPR EHENS SOTERO METAB OLIC PANEL alkaline phosphatase 79 U/L 37-153 normal Not Available [facility] [address], [address], 12/09/2024 05:27:04 12/08/19 25 12/09/2024 COMPR EHENS SOTERO METAB OLIC PANEL AST 21 U/L 10-35 normal Not Available [address], [address], 12/09/2024 05:27:04 12/08/19 25 12/09/2024 COMPR EHENS SOTERO METAB OLIC PANEL ALT 18 U/L 6-29 normal Not Available [address], [address], 12/09/2024 05:27:04 12/08/19 25 12/09/2024 CBC (INCL UDES DIFF/ PLT) white blood cell count 7.9 thous and/u L 3.8-10 .8 normal Not Available [address], [address], 12/09/2024 05:27:05 12/08/19 25 12/09/2024 CBC (INCL UDES DIFF/ PLT) red blood cell count 5.63 mir on/uL 3.80-5 .10 high Not Available [address], [address], 12/09/2024 05:27:05 12/08/19 25 12/09/2024 CBC (INCL UDES DIFF/ PLT) hemoglobin 16.6 g/dL 11.7-1 5.5 high Not Available [employer] [address], [address], 12/09/2024 05:27:05 12/08/19 25 12/09/2024 CBC (INCL UDES DIFF/ PLT) hematocrit 50.3 % 35.0-4 5.0 high Not Available [employer] [address], [address], 12/09/2024 05:27:05 12/08/19 25 12/09/2024 CBC (INCL UDES DIFF/ PLT) MCV 89.3 fL 80.0-1 00.0 normal Not Available [address], [address], 12/09/2024 05:27:05 12/08/1912/09/2024 CBC (INCL UDES DIFF/ PLT) MCH 29.5 pg 27.0-3 3.0 normal Not Available [facility] [address], [address], 12/09/2024 05:27:05 12/08/19 25 12/09/2024 CBC (INCL UDES DIFF/ PLT) MCHC 33.0 g/dL 32.0-3 6.0 normal For adult s, a sligh t decre ase in the calcu lated MCHC value (in the range of 30 to 32 g/dL) is most likel y not clini patricia signi janeth t; patricia er, it shoul d be inter prete d with cauti on in corre lat n with other red cell gustavo eters and the patie nt's clini anastasia condi tion. Not Available [address], [address], 12/09/2024 05:27:05 12/08/19 25 12/09/2024 CBC (INCL UDES DIFF/ PLT) RDW 12.1 % 11.0-1 5.0 normal Not Available [address], [address], 12/09/2024 05:27:05 12/08/19 25 12/09/2024 CBC (INCL UDES DIFF/ PLT) platelet count 257 thous and/u L 140-40 0 normal Not Available [address], [address], 12/09/2024 05:27:05 12/08/1913 1212/09/2024 CBC (INCL UDES DIFF/ PLT) MPV 10.1 fL 7.5-12 .5 normal Not Available [address], [address], 12/09/2024 05:27:05 12/08/19 25 12/09/2024 CBC (INCL UDES DIFF/ PLT) absolute neutrophils 4787 cells /uL 1500-7 800 normal Not Available [address], [address], 12/09/2024 05:27:05 12/08/19 25 12/09/2024 CBC (INCL UDES DIFF/ PLT) absolute lymphocytes 2291 cells /uL 850-39 00 normal Not Available [address], [address], 12/09/2024 05:27:05 12/08/19 25 12/09/2024 CBC (INCL UDES DIFF/ PLT) absolute monocytes 695 cells /uL 200-95 0 normal Not Available [address], [address], 12/09/2024 05:27:05 12/08/19 25 12/09/2024 CBC (INCL UDES DIFF/ PLT) absolute eosinophils 79 cells /uL 15-500 normal Not Available [address], [address], 12/09/2024 05:27:05 12/08/19 25 12/09/2024 CBC (INCL UDES DIFF/ PLT) absolute basophils 47 cells /uL 0-200 normal Not Available [employer] [address], [address], 12/09/2024 05:27:05 12/08/19 25 12/09/2024 CBC (INCL UDES DIFF/ PLT) neutrophils 60.6 % normal Not Available [address], [address], 12/09/2024 05:27:05 12/08/19 25 12/09/2024 CBC (INCL UDES DIFF/ PLT) lymphocytes 29.0 % normal Not Available [address], [address], 12/09/2024 05:27:05 12/08/19 25 12/09/2024 CBC (INCL UDES DIFF/ PLT) monocytes 8.8 % normal Not Available [address], [address], 12/09/2024 05:27:05 12/08/19 25 12/09/2024 CBC (INCL UDES DIFF/ PLT) eosinophils 1.0 % normal Not Available [address], [address], 12/09/2024 05:27:05 12/08/19 25 12/09/2024 CBC (INCL UDES DIFF/ PLT) basophils 0.6 % normal Not Available [address], [address], 12/09/2024 05:27:05 12/08/19 25 12/09/2024 VITAM IN B12 vitamin B12 410 pg/mL 200-11 00 normal Not Available [address], [address], 12/09/2024 05:27:06 12/08/19 25 12/09/2024 T4, FREE T4, free 1.1 NG/dL 0.8-1. 8 normal Not Available [address], [address], 12/09/2024 05:27:07 12/08/19 25 12/09/2024 TSH TSH 2.54 mIU/L 0.40-4 .50 normal Not Available [address], [address], 12/09/2024 05:27:08 12/05/19 25 12/04/2024 bone densi ty No observ ation record ed. [address] [address] [address], [place], [address], 12/05/2024 09:48:53 03/09/20 25 03/09/2025 MAMMO , scree comfort, bilat eral No observ ation record ed. [address] [address] [address], [place], [address], 03/09/2025 12:28:54 03/11/20 25 03/11/2025 US, melani x, adama s, lower extre mity No observ ation record ed. [address], [place], [address], 03/11/2025 13:38:37 Result Notes None recorded. Problems Name Problem SNOMED Code Status Onset Date Resolution Date Notes Provider Name and Address Organization Details Recorded Time Irritable bowel syndrome 38933814 Active 2019 Not Available [facility] 3 00:53:26 Gastroesop hageal reflux disease 781904407 Active Not Available [facility] 3 00:53:27 Gastroente ritis 10952230 Active 2021 Not Available [facility] 3 00:53:27 Pure hyperchole sterolemia 670944434 Active Not Available [facility] 3 00:53:27 Vitamin D deficiency 18886451 Active 2021 Not Available [facility] 3 00:53:27 Acute urinary tract infection 175824608 Active 2021 Not Available [facility] 3 00:53:27 Pain of hip region 88296349 Active Not Available [facility] 3 00:53:27 Chronic nonalcohol ic liver disease 39990094 Active Not Available [facility] 3 00:53:27 Fatigue 28528028 Active Not Available [facility] 3 00:53:27 Primary malignant neoplasm of female breast 54280574 Active Not Available [facility] 3 00:53:27 Essential hypertensi on 68794652 Active 2022 Ellie Ceja MD [address], [address], [place], [address] , [facility] [employer] [facility] [employer] [facility] 3 11:48:09 Senile osteoporos is 87271856 Active 2023 Laura mendieta, [place] [employer] [facility] [employer] [facility] 4 11:02:08 COVID-19 688708860 Active 2023 Ellie Ceja MD [address], [address], [place], [address] , [employer] [facility] 4 12:52:22 Edema of lower extremity 826170701 Active 2024 SHEILA [place], [place] [employer] [facility] [employer] [facility] 5 11:01:09 Pain in left lower limb 942143908 Active 2024 Ellie Ceja MD [address], [address], [place], [address] , [employer] [facility] 5 16:58:40 Pain of left knee joint 5826558462171 07 Active 2024 Laura mendieta, [employer] [facility] [employer] [facility] 5 17:13:49 Problem Notes None recorded. Procedures Surgical History Date Name Laterality Status Provider Name and Address Organization Details Recorded Time 05/25/20 Medicare Wellness CPT Code, subsequent completed Sangeetha Rashid RN [facility] [employer] [facility] 05/25/2023 11:38:36 07/23/20 15 Date of Last Colonoscopy completed Not Available [facility] 01/17/2023 00:47:54 Imaging Results Imaging Date Name Status LastModified by Organiz [facility] Details LastModified Time 12/04/2024 bone density completed [address] [address] [place], [address], 12/05/2024 09:48:53 03/09/2025 MAMMO, screening, bilateral completed [address] [facility] [address], [place], [address], 03/09/2025 12:28:54 03/11/2025 US, duplex, venous, lower extremity completed [email or web address] [facility] [address], [place], [address], 03/11/2025 13:38:37 Procedure Notes None recorded. Medical Equipment None Reported. Allergies Allergen ID Allergen Name Allergen Category Reaction Reaction Severity Criticality Documentation Date Start Date Code Code System Note Provider Name and Address Organization Details Recorded Time 1312 Lipitor medicatio n other Not available Not available 01/17/2023 12970 5 RxNorm GI SIDE EFFEC TS Not Available [facility] 01:02:07 Medications Name Sig Start Date Stop Date Status Note LastModified by Organization Details LastModified Time status covid-19/fl u a-b antigen tst TEST DIRECTED TODAY 12/04 completed Not Available Not Available Not Available amoxicillin 500 mg capsule Take 1 capsule 3 times a day by oral route for 10 days. active Not Available Not Available No t Available azithromyci n 250 mg tablet TAKE 2 TABLETS BY MOUTH ON DAY 1, AND THEN TAKE 1 TABLET BY MOUTH ONCE A DAY ON DAY 2 THROUGH DAY 5 12/04 completed Not Available Not Available Not Available fluconazole 150 mg tablet TAKE 1 TABLET BY MOUTH ONCE DAILY 11/24 completed Not Available Not Available Not Available cyanocobala min (vit B-12) 1,000 mcg tablet Take 1 tablet every day by oral route. active Not Available Not Available No t Available chlorthalid one 25 mg tablet Take 1 tablet by mouth once daily active Not Available Not Available No t Available sulfamethox azole 800 mg-trimetho prim 160 mg tablet TAKE 1 TABLET BY MOUTH TWICE DAILY 11/30 completed Not Available Not Available Not Available quinapril 40 mg tablet Take 1 tablet by mouth once daily active Not Available Not Available No t Available simvastatin 40 mg tablet Take 1 tablet by mouth once daily active Not Available Not Available No t Available tamoxifen 10 mg tablet Take 1 tablet every day by oral route. 2013 active Not Available Not Available Not Avai lable dexamethaso ne 2 mg tablet TAKE 1 TABLET BY MOUTH THREE TIMES DAILY FOR 3 DAYS THEN 1 TWICE DAILY FOR 3 DAYS THEN 1 ONCE DAILY FOR 3 DAYS 12/04 completed Not Available Not Available Not Available cephalexin 500 mg capsule TAKE 1 CAPSULE BY MOUTH EVERY 8 HOURS FOR 10 DAYS 05/26 completed Not Available Not Available Not Available clotrimazol e-betametha sone 1 %-0.05 % topical cream 05/26 completed Not Available Not Available Not Available losartan 25 mg tablet TAKE 1 TABLET BY MOUTH ONCE DAILY 05/25 completed Not Available Not Available Not Available hydrochloro thiazide 25 mg tablet one on sunday, sunday , sunday active Not Available Not Available No t Available Levaquin 500 mg tablet Take 1 tablet every 24 hours by oral route. active Not Available Not Available No t Available azelastine 137 mcg (0.1 %) nasal spray 05/26 completed Not Available Not Available Not Available methylpredn isolone 4 mg tablets in a dose pack TAKE BY MOUTH DIRECTED ON INSIDE OF PACKAGE 05/26 completed Not Available Not Available Not Available Lomotil 2.5 mg-0.025 mg tablet Take by oral route one tablet q 4 hours prn for diarrhea active Not Available Not Available No t Available lisinopril 40 mg tablet TAKE 1 TABLET BY MOUTH ONCE DAILY active Not Available Not Available No t Available fluticasone propionate 50 mcg/actuati on nasal spray,suspe nsion 05/26 completed Not Available Not Available Not Available dicyclomine 10 mg capsule Take 1 capsule 3 times a day by oral route. active Not Available Not Available No t Available Vitamin D3 25 mcg (1,000 unit) capsule Take 1 capsule every day by oral route. 05/26 completed Not Available Not Available Not Available rosuvastati n 20 mg tablet Take 1 tablet by mouth once daily 2024 active Not Available Not Available Not Avai lable Prilosec OTC 20 mg tablet,rehan yed release ONCE DAILY 2012 active Not Available Not Available Not Avai lable Multivitami n 50 Plus tablet Take 1 tablet every day by oral route. active Not Available Not Available No t Available multivitami n 08/09 completed Not Available Not Available Not Available Body, Hair, Skin and Nails 3 mg-133 mcg capsule Take 1 capsule every day by oral route. 11/24 completed Not Available Not Available Not Available Probiotic 08/09 completed Not Available Not Available Not Available Metamucil (with sugar) 3.4 gram oral powder packet Take 1 packet every day by oral route. active Not Available Not Available No t Available Probiotic (S.boulardi i) 250 mg capsule Take 1 capsule every day by oral route. 05/26 completed Not Available Not Available Not Available Caltrate with Vitamin D3 once daily 03/11 completed Not Available Not Available Not Available Fluad Quad 0170-2462(6 5yr up)(PF) 60 mcg (15 mcg x 4)/0.5mL IM syringe [facility] 05/20 completed Not Available Not Available Not Available Vitals Date Recorded Body height Body mass index (BMI) Body weight Heart rate Body temperature Oxygen saturation Oxygen saturation in Arterial blood by Pulse oximetry Systolic blood pressure Diastolic blood pressure Provider Name and Address Organization Details Last Updated DateTime 3 154.94 cm 25.9 kg/m2 64270.1 5 g 74 /min 97 [degF] 97 % 97 % 120 mm[Hg] 64 mm[Hg] [facility] 3 11:28:28 Date Recorded Body height Body mass index (BMI) Body weight Heart rate Body temperature Oxygen saturation Oxygen saturation in Arterial blood by Pulse oximetry Systolic blood pressure Diastolic blood pressure Provider Name and Address Organization Details Last Updated DateTime 4 156.21 cm 26.2 kg/m2 26003.5 2 g 75 /min 97 [degF] 97 % 97 % 138 mm[Hg] 80 mm[Hg] Lalitha [facility] [employer] 4 11:15:09 Date Recorded Body height Body mass index (BMI) Body weight Heart rate Body temperature Oxygen saturation Oxygen saturation in Arterial blood by Pulse oximetry Systolic blood pressure Diastolic blood pressure Provider Name and Address Organization Details Last Updated DateTime 4 156.21 cm 29.7 kg/m2 94807.7 8 g 80 /min 97.5 [degF] 97 % 97 % 138 mm[Hg] 86 mm[Hg] Araceli MalikFRANCESCAJonathan [facility] [employer] [facility] 4 10:54:00 Date Recorded Body height Body mass index (BMI) Body weight Heart rate Body temperature Oxygen saturation Oxygen saturation in Arterial blood by Pulse oximetry Systolic blood pressure Diastolic blood pressure Provider Name and Address Organization Details Last Updated DateTime 5 154.94 cm 33.3 kg/m2 70755.2 6 g 78 /min 97 [degF] 97 % 97 % 138 mm[Hg] 78 mm[Hg] Lalitha Giraldo [facility] [employer] [facility] 5 14:56:08 Date Recorded Body height Body mass index (BMI) Body weight Heart rate Body temperature Oxygen saturation Oxygen saturation in Arterial blood by Pulse oximetry Systolic blood pressure Diastolic blood pressure Provider Name and Address Organization Details Last Updated DateTime 5 156.21 cm 32 kg/m2 16807.8 9 g 97 /min 97 [degF] 98 % 98 % 160 mm[Hg] 100 mm[Hg] Lalitha Giraldo [facility] [employer] [facility] 5 16:55:37 Social History Question Answer Notes LastModified by Scaleformat ion Details LastModified Time Tobacco Smoking Status Never Smoker Not Available [facility] 01/17/2023 00:46:41 Do You Have An Advance Directive? Yes [id number] Information not available 01/17/2023 Are You Blind Or Do You Have Difficulty Seeing? No [id number] Information not available 01/17/2023 Are You Deaf Or Do You Have Serious Difficulty Hearing? No [id number] Information not available 01/17/2023 What Type Of Diet Are You Following? REGULAR [id number] Information not available 01/17/2023 Have There Been Any Changes To Your Family Or Social Situation? Yes Lost Her Spouse A Year Ago [id number] Information not available 05/25/2023 What Is The Fluoride Status Of Your Home? Unknown [id number] Information not available 01/17/2023 Do You Use Insect Repellent Routinely? No [id number] Information not available 01/17/2023 Where Do You Live? [place] MIGRATION.[id number] Information not available 01/17/2023 Are You Able To Care For Yourself? Yes [email or web address] Information not available 05/25/2023 Are You Blind Or Do Yo Have Difficulty Seeing? No [email or web address] Information not available 05/25/2023 Are You Deaf Or Do You Have Serious Difficulty Hearing? No [email or web address] Information not available 05/25/2023 Live Alone Of With Others? Alone [email or web address] Information not available 05/25/2023 Do You Have A Medical Power Of Carbonating Stone Cleaner? Yes MIGRATION.[id number] [id number] Information not available 01/17/2023 What Was The Date Of Your Most Recent Tobacco Screening? 05/25/2023 [email or web address] Information not available 05/25/2023 Do You Have Any Pets? No MIGRATION.[id number] Information not available 01/17/2023 What Is Your Relationship Status? MIGRATION.65410 [id number] Information not available 01/17/2023 Do You Use Your Seat Belt Or Car Seat Routinely? Yes MIGRATION.99520 [id number] Information not available 01/17/2023 Do You Have Smoke And Carbon Monoxide Detectors In Your Home? Yes MIGRATION.05585 22005 Information not available 01/17/2023 Are You Passively Exposed To Smoke? No MIGRATION.76633 16350 Information not available 01/17/2023 Are There Any Smokers In Your House? No [email or web address] Information not available 05/25/2023 Do You Use Sunscreen Routinely? Yes MIGRATION.82111 70206 Information not available 01/17/2023 Have You Recently Traveled Abroad? No MIGRATION.99167 77414 Information not available 01/17/2023 Do You Have Difficulty Walking Or Climbing Stairs? No MIGRATION.36515 00714 Information not available 01/17/2023 Do You Have Any Dietary Restrictions? No MIGRATION.01179 10636 Information not available 01/17/2023 Sex: Unknown Functional Status Question Answer Note LastModified by Organizat ion Details LastModified Time Do you or have you ever used any other forms of tobacco or nicotine? No MIGRATION.[id number] 026 Information not available 01/17/2023 What is your level of alcohol consumption? None [email or web address] Information not available 05/25/2023 Do you have transportation difficulties? No MIGRATION.[id number] 026 Information not available 01/17/2023 Are you able to walk? YESWOREST MIGRATION.[id number] 026 Information not available 01/17/2023 Do you have difficulty doing errands alone? No MIGRATION.[id number] 026 Information not available 01/17/2023 Are you able to care for yourself? Yes MIGRATION.[id number] 026 Information not available 01/17/2023 Do you have difficulty dressing or bathing? No MIGRATION.[id number] 026 Information not available 01/17/2023 What is your exercise level? Occasional MIGRATION.[id number] 026 Information not available 01/17/2023 Mental Status Question Answer Note LastModified by Organizat ion Details LastModified Time Do you have difficulty concentrating, remembering or making decisions? No MIGRATION.[id number] Information not available 01/17/2023 Family History Nothing Reported Notes:Mother 83 wit h hx of carotid stenosis, ASHD and coronary bypass and dementia Father 84 with hx of hypertension and Lymphoma One brother living in good health with hypertension. Medical History Condition Response NERVE DISEASE N BLINDNESS N RHEUMATIC FEVER N KIDNEY STONES N BLADDER PROBLEMS N MRSA N OTHER # 1 N POLIO N LUNG DISEASE/DISORDER N HISTORY OF DRUG ABUSE N RADIATION / CHEMOTHERAPY N COPD N Other # 2 N BLOOD DISEASES N EAR OR HEARING PROBLEMS N MUMPS N SHINGLES N DEPRESSION (INCLUDING POST ) N BOWEL PROBLEMS N STROKE/TIA N ULCERS N BENIGN PROSTATIC HYPERPLASIA N MEASLES N HYPOTENSION N MYOCARDIAL INFARCTION N OBESITY N GERD/NAUSEA N ANEURYSM N URINARY/BLADDER/KIDNEY PROBLEMS N CORONARY ARTERY DISEASE (CAD) N ADDICTION CONCERNS N Impotence N ENDOMETRIOSIS N USE OF BLOOD THINNERS N SKIN PROBLEMS N GASTROINTESTINAL DISORDER N PERIPHERAL VASCULAR DISEASE N MUSCLE,JOINT OR BONE PROBLEMS N GASTROINTESTINAL BLEEDING N BLOOD CLOTS N ASTHMA N CATARACTS N ERECTILE DYSFUNCTION N VARICOSITIES N GI PROBLEMS N Low Testosterone N INFERTILITY N AIDS/HIV N CHEMOTHERAPY / RADIATION N LIVER DISEASE N MALE HYPOGONADISM N HYPERTENSION Y Deficiency N TOURETTE'S N ANXIETY DISORDER N BLOOD TRANSFUSION N ANEMIA/BLOOD DISORDER N CHRONIC EAR INFECTIONS N BRONCHITIS N TUBERCULOSIS N GLAUCOMA N FOOT PROBLEM N DIVERTICULITIS N SLEEP APNEA N CHICKENPOX N INFECTIOUS DISEASE N PROSTATE N HEART ARRHYTHMIA N INSOMNIA N HIGH CHOLESTEROL / HYPERLIPIDEMIA Y EYE PROBLEMS N HYPERTHYROIDISM N EDEMA N CHRONIC PAIN SYNDROME N HYPOTHYROIDISM N CAROTID BLOCKAGE N CONSTIPATION N BACK / NECK PROBLEMS N HAVE YOU BEEN HOSPITALIZED OR SEEN IN [facility] IN THE PAST YEAR ? N ATHEROSCLEROSIS N BREAST PROBLEMS N DIALYSIS N ECZEMA N OSTEOPOROSIS N ARTHRITIS N NO SIGNIFICANT PAST MEDICAL HISTORY N APPENDICITIS N DIABETES, TYPE N BAD TEETH N ENT N HEARTBURN / REFLUX Y AUTISM SPECTRUM DISORDER (ASD) N HEPATITIS / LIVER DISEASE N GOUT N SLEEP DISORDER N ALZHEIMER'S DISEASE N Brain Problems N DEMENTIA N HERPES N SEIZURES/EPILEPSY N HEADACHES/MIGRAINES N VASCULAR DISEASE N PACEMAKER N Blood Disorder N DIZZINESS N HEART DISEASE/HEART PROBLEMS N KIDNEY DISEASE N MULTIPLE SCLEROSIS N CANCER: SPECIFY Y CARDIAC ARRHYTHMIA N ATRIAL FIBRILLATION N Gall Stones N PULMONARY EMBOLISM N AUTOIMMUNE DISEASE N Gynecological History Statement/Question Response Date of Last Mammogram Date of Last Colonoscopy 07/23/2015 Most Recent Bone Density Obstetrics History GPAL:G 0 P 0 0 0 0 Immunizations Vaccine Type Date Status Note Provider Nam e and Address Organization Details Recorded Time SARS-COV-2 (COVID-19) vaccine, UNSPECIFIED 3 completed Lalitha mendieta [facility] [employer] 11/30/2023 11:17:04 influenza, unspecified formulation 3 completed Lalitha Giraldo [employer] [facility] [employer] [facility] 11/30/2023 11:17:17 Respiratory syncytial virus (RSV) vaccine, unspecified 3 completed Lalitha Giraldo Rh[employer] [facility] [employer] [facility] [employer] 11/30/2023 11:17:34 influenza, unspecified formulation 2 completed Not Available [facility] 01/17/2023 01:01:55 Influenza, split virus, quadrivalent, preservative 1 completed Not Available [facility] 01/17/2023 01:01:55 SARS-COV-2 (COVID-19) vaccine, UNSPECIFIED 1 completed Not Available [facility] 01/17/2023 01:01:56 SARS-COV-2 (COVID-19) vaccine, UNSPECIFIED 1 completed Not Available [facility] 01/17/2023 01:01:56 SARS-COV-2 (COVID-19) vaccine, UNSPECIFIED 1 completed Not Available [facility] 01/17/2023 01:01:56 pneumococcal polysaccharide PPV23 2 completed Not Available [facility] 01/17/2023 01:01:56 Influenza, split virus, quadrivalent, PF 8 completed Not Available [facility] 01/17/2023 01:01:56 Influenza, split virus, quadrivalent, PF 7 completed Not Available [facility] 01/17/2023 01:01:56 Pneumococcal conjugate PCV 13 0 completed Not Available [facility] 01/17/2023 01:01:56 Influenza, split virus, quadrivalent, PF 6 completed Not Available [facility] 01/17/2023 01:01:56 Influenza, split virus, quadrivalent, preservative 5 completed Not Available [facility] 01/17/2023 01:01:56 Past Encounters Encounter ID Performer Location Encounter Start Date Encounter Closed Date Diagnosis/Indication Diagnosis SNOMED-CT Code Diagnosis ICD10 Code Diagnosis Note [id number] Jovany Cross MD [facility] Ortho Yvonne Cevallos [address] [place] [address] 01/25/2021 00:00:00 01/25/2021 10:23:47 [id number] Ellie Ceja MD [facility] Internal Med [place] [address] [place] [address] [place] [address] 05/20/2021 00:00:00 05/20/2021 10:55:52 [id number] Ellie Ceja MD [facility] Internal [place] [address] [place] [address] [place] [address] 11/25/2021 00:00:00 11/25/2021 10:45:46 [id number] Ellie Ceja MD [facility] Internal Med [place] [address] [place] [address] [place] [address] 02/24/2022 00:00:00 02/24/2022 12:25:22 [id number] Ellie Ceja MD [facility] Internal Med [place] [address] [place] [address] [place] [address] 05/26/2022 00:00:00 05/26/2022 10:56:30 [id number] Ellie Ceja MD [facility] Internal Med [place] díaz [address] [place] [address] [place] [address] 11/24/2022 00:00:00 11/24/2022 11:21:17 [id number] Ellie Ceja MD [facility] Internal Med [place] dí[place] [address] [place] [address] [place] [address] 05/25/2023 10:48:44 05/25/2023 12:01:40 Adult health examination 574539655 Z00.00 Screening for disorder 784218690 Z13.9 Essential hypertension 45731627 I10 Gastroesop hageal reflux disease 720532475 K21.9 Pure hypercholesterolemia 325914187 E78.00 [id number] Ellie Ceja MD [facility] Internal Med [place]iana díaz [address] [place] [address] [place] [address] 11/30/2023 10:53:36 11/30/2023 11:40:45 Essential hypertension 01452080 I10 Pure hypercholesterolemia 554824844 E78.00 Primary ma lignant neoplasm of female breast 23625044 C50.919 Gastroesop hageal reflux disease 096144033 K21.9 [id number] Ellie Ceja MD [facility] Internal Med [place] d[facility] [address] [place] [address] [place] [address] 05/29/2024 10:53:34 05/29/2024 11:01:07 Essential hypertension 99539145 I10 Pure hypercholesterolemia 271316614 E78.00 Gastroesop hageal reflux disease 614523992 K21.9 Vitamin D deficiency 347 35598 E55.9 [id number] Ellie Ceja MD [facility] Primary Care [facility] [address] [place] [address] 12/04/2024 14:25:45 12/04/2024 15:19:42 Essential hypertension 49379691 I10 Pure hypercholesterolemia 385140670 E78.00 Gastroesop hageal reflux disease 252486468 K21.9 [id number] Ellie Ceja MD [facility] Internal Med [facility] [address], [place] [address] 03/11/2025 16:52:40 03/11/2025 17:10:40 Pain in left lower limb 354214960 M79.605 Health Concerns Section Related Observation LastModified by Organization Detai ls LastModified Time None Recorded Concern Status LastModified by Organization Details LastModified Time None Recorded Advance Directives Directive Y: Payers Encounter Date Sequence Insurance Name Policy Number Policy Tariq Covered Member ID Tariq Member ID Guarantor Name 05/25/2023 1 [place] Janelle Gerardo Mohanon [id number] 2 Janelle Gerardo Mohanon 05/25/2023 2 [place] 104 Janelle L Berry [id number] Janelle L Berry 11/30/2023 1 [place] Janelle Gerardo Berry [id number] Janelle L Berry 11/30/2023 2 [place] 104 Jaenlle L Berry [id number] Janelle L Berry 05/29/2024 1 [place] Janelle Gerardo Mohanon [id number] 2 Janelle L Berry 05/29/2024 2 [place] 104 Janelle L Berry [id number] Janelle L Berry 12/04/2024 1 [place] Janelle Gerardo Mohanon [id number] 2 Janelle Gerardo Berry 12/04/2024 2 [place] 104 Janelle L Berry [id number] Janelle L Berry 03/11/2025 1 [place] Janelle Gerardo Berry [id number] 2 Janelle L Berry 03/11/2025 2 [place] 104 Janelle L Berry [id number] Janelle L Berry Notes Date Note Type Note Provider Name and Address Organization Details Recorded Time 05/25/2023 text/html Patient Name: Tahir Queenate Of Service: Sunday ( 05.25.2023 ): 1955 Age: 67 Vital Signs:Blood Pressure: Sitting Rt. Arm 120/64Pulse: Sitting 74 /min and RegularRespirations: 12Height 61 in or 1.5 mWeight 137 lb or 62.1 kgBMI 25.9Temperature: 97 F or 36.1 CPulse Oximetry: 97 % at rest on no oxygen Chief Complaint: Addressed in HPI Problems or conditions discussed in the HPI were the only ones reviewed during the encounter.Only social and family history addressed in the HPI were reviewed during this encounter. A significant, separate E/M service was performed to evaluate the current and new problems. Attendant(s): None Constitutional and Systemic Symptoms: none Medication Reconciliation: from medication list. History of Present Illness Reviewed the findings of the preventative health visit. Addressed all areas with the patient, patient's family or caregivers. Preventative examinations and testing immunizations - vaccinations, colonic neoplasm screening and DEXA Scan all reviewed and ordered where patient was amenable to the recommendations. Cognitive function was normal. Depression addressed and where necessary medications were adjusted or instituted. End of life and living will briefly discussed with patient and where these can be filled out and legally executed. Other blood and imaging studies were ordered if considered necessary. Other recommendations may be found in the encounter note. #1. Essential Hypertension: Stage: Stage I Interval Neurological Complaints no headaches, dizziness, weakness, visual changes, ataxia, aphasia and apraxia. No shortness of breath, orthopnea or cardiovascular symptoms. No other symptoms related to end organ damage. Pressure has been under excellent control. Currently normal. No other end organ symptoms or findings. Therapy reviewed regarding management of hypertension and includes salt restriction and Lisinopril. #2. Type II Hypercholesterolaemia: Currently taking medication and tolerating well. No interval complaints of any muscle pain or arthralgia. No significant liver changes with medications. Last lipid panel: fair control. Therapy reviewed regarding treatment of cholesterol management and include diet and Crestor. #3. Hx of esophageal reflux currently stable. Hx of Complications: none The severity, duration and intensity of symptoms have improved. Frequency: most meals Treatment consists medications taken on no regular basis. Current therapy includes Prilosec Otc. There has been no nausea, vomiting, hematemesis, dysphagia, velopharyngeal insufficiency and odynophagia. No change in he frequency or intensity of symptoms. Has had no melena. Has had no hematemesis. Discuss the possibility of trying to reduce the frequency of the use of any PPI inhibitors or H2 antagonist to see if symptoms can be controlled with last intensive therapyMedication List Reviewed and Reconciled 05/25/2023rilosec Otc 20 MG (TABLET, DELAYED RELEASE - ORAL) One DailyLisinopril 40 MG TABLET QdCrestor 20 MG (TABLET - ORAL) QdADRs List Reviewed 05/25/2023Lipitor Gi Side EffectsVaccination and Lwkkhhkkkoku1999-07 Vtaqeccee7036-30 Pneumovax 396004-97 Covid Jrpnpkb2058-31 Prevnar 13Surgical HistoryCarcinoma Right Breast, Lap Cholecystectomy, Jaw Surgery, D+CPreventative Testing Confirmed by Our Luzknri0302/22/2023 MAMMOGRAM ALBUMIN 4.3 G/DL07/23/2015 COLONOSCOPY (10 YEARS) HAI10/29/2009 DEXA SCAN04/30/2006 UPPER ENDOSCOPYSocial HistoryDoes not smoke or drink. 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 Ellie Ceja MD [address] [place] [address], [place], [address], [place] [facility] 05/25/2023 11:55:24 11/30/2023 text/html Patient Name: Tahir Bro Madalyn Of Service: Sunday ( 11.30.2023 ): 1955 Age: 68 There has been approximately a 4 lb weight gain since 05/25/2023. This represents approximately a 2.9% change in weight. Weight change attributable to lifestyle changes. Vital Signs:Blood Pressure: Sitting Rt. Arm 138/80Pulse: Sitting 75 /min and RegularRespiratory Rate: 12Height 61.5 in or 1.6 mWeight 141 lb or 64.0 kgBMI 26.2Temperature: 97 F or 36.1 CPulse Oximetry: 97 % at rest on no oxygen Chief Complaint: Addressed in HPI Problems or conditions discussed in the HPI were the only ones reviewed during the encounter.Only social and family history addressed in the HPI were reviewed during this encounter. Attendant(s): NoneConstitutional and Systemic Symptoms:none Medication Reconciliation: by patient. History of Present Illness #1. Essential Hypertension: Stage: Stage I Interval Neurological Complaints no headaches, dizziness, weakness, visual changes, ataxia, aphasia and apraxia. No shortness of breath, orthopnea or cardiovascular symptoms. No other symptoms related to end organ damage. Pressure has been under excellent control. Currently normal. No other end organ symptoms or findings. Therapy reviewed regarding management of hypertension and includes salt restriction and Lisinopril. #2. Type II Hypercholesterolaemia: Currently taking medication and tolerating well. No interval complaints of any muscle pain or arthralgia. No significant liver changes with medications. Last lipid panel: fair control. Therapy reviewed regarding treatment of cholesterol management and include diet and Crestor. #3. Hx of Ca of the right breast(s). Sub classification: see oncology records. Metastasis: None Current Medications: none.. #4. Hx of esophageal reflux currently stable. Hx of Complications: none The severity, duration and intensity of symptoms have improved. Frequency: every meal Treatment consists medications taken on a regular basis. Current therapy includes Prilosec Otc. There has been no nausea, eructation, vomiting, hematemesis, dysphagia and velopharyngeal insufficiency. No change in he frequency or intensity of symptoms. Has had no melena. Has had no . Discussed the possibility of trying to reduce the frequency of the use of any PPI inhibitors and try H2 antagonists to see if symptoms can be controlled with lease intensive therapy since a number of complications are associated with chronic prolonged use of PPI inhibitors.Medication List Reviewed and Reconciled 4Prilosec Otc 20 MG (TABLET, DELAYED RELEASE - ORAL) One DailyLisinopril 40 MG TABLET QdCrestor 20 MG (TABLET - ORAL) QdADRs List Reviewed 11/30/2023Lipitor Gi Side EffectsVaccination and Uotxunttvfcx8841-27 Covid Booster Pdocbek8024-33 Ubp6050-86 Yxlccpvwl6165-46 Emkubtojv1734-64 Covid Alnfjlf3146-65 Prevnar 13 GcSurgical HistoryCarcinoma Right Breast, Lap Cholecystectomy, Jaw Surgery, D+CPreventative Testing Confirmed by Our Whclrre4905/25/2023 ALBUMIN 4.4 G/DL N002/22/2023 MAMMOGRAM /02/2015 COLONOSCOPY (10 YEARS) DEXA SCAN04/30/2006 UPPER ENDOSCOPYSocial HistoryDoes not smoke or drink. 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 TEST RESULT RANGE UNITSCBC (INCLUDES DIFF/PLT) Date: 05/25/2023WHITE BLOOD CELL COUNT 7.3 3.8-10.8 THOUSAND/ULHEMOGLOBIN 16.0 11.7-15.5 G/DLHEMATOCRIT 47.5 35.0-45.0 %PLATELET COUNT 257 140-400 THOUSAND/ULCOMPREHENSIV E METABOLIC PANEL Date: 05/25/2023SODIUM 141 135-146 MMOL/LPOTASSIUM 4.4 3.5-5.3 MMOL/LBILIRUBIN, TOTAL 0.7 0.2-1.2 MG/DLALKALINE PHOSPHATASE 102 37-153 U/LAST 20 10-35 U/LALT 16 6-29 U/LGLUCOSE 82 65-99 MG/DLCREATININE 0.89 0.50-1.05 MG/DLEGFR 71 > OR = 60 ML/MIN/1.26G4EPXBA PANEL, STANDARD Date: 05/25/2023HOLESTEROL, TOTAL 140 <200 MG/DLHDL CHOLESTEROL 46 > OR = 50 MG/DLTRIGLYCERIDES 80 <150 MG/DLLDL-CHOLESTEROL 78 MG/DL (CALC)MAGNESIUM Date: 05/25/2023MAGNESIUM 2.2 1.5-2.5 MG/DL Ellie Ceja MD [address] [facility] [facility] [address], [place], [address], [facility] 11/30/2023 11:39:05 05/29/2024 text/html Patient Name: Tahir Bro MarquesonDate Of Service: May ( 05.29.2024 ): 1955 Age: 68 There has been approximately a 19 lb weight gain since 11/30/2023. This represents approximately a 13.5% change in weight. Weight change attributable to lifestyle changes. Vital Signs:Blood Pressure: Sitting Rt. Arm 138/86Pulse: Sitting 80 /min and RegularRespiratory Rate: 12Height 61.5 in or 1.6 mWeight 160 lb or 72.6 kgBMI 29.7Temperature: 97.5 F or 36.4 CPulse Oximetry: 97 % at rest on no oxygen Chief Complaint: Addressed in HPI Problems or conditions discussed in the HPI were the only ones reviewed during the encounter.Only social and family history addressed in the HPI were reviewed during this encounter. Attendant(s): NoneConstitutional and Systemic Symptoms:none Medication Reconciliation: from medication list. History of Present Illness #1. Essential Hypertension: Stage: Stage I Interval Neurological Complaints no headaches, dizziness, weakness, visual changes, ataxia, aphasia and apraxia. No shortness of breath, orthopnea or cardiovascular symptoms. No other symptoms related to end organ damage. Pressure has been under excellent control. Currently normal. No other end organ symptoms or findings. Therapy reviewed regarding management of hypertension and includes salt restriction and Lisinopril. #2. Type II Hypercholesterolaemia: Currently taking medication and tolerating well. No interval complaints of any muscle pain or arthralgia. No significant liver changes with medications. Last lipid panel: fair control. Therapy reviewed regarding treatment of cholesterol management and include diet and Crestor. #3. Hx of esophageal reflux currently stable. Hx of Complications: none The severity, duration and intensity of symptoms have improved. Frequency: most meals Treatment consists medications taken on intermittent basis. Current therapy includes Prilosec Otc. There has been no nausea, eructation, vomiting, hematemesis, dysphagia and velopharyngeal insufficiency. No change in he frequency or intensity of symptoms. Has had no melena. Has had no . Discussed use of H2 antagonists and the possibility of trying to reduce the frequency of the use of any PPI inhibitors and try H2 antagonists to see if symptoms can be controlled with lease intensive therapy since a number of complications are associated with chronic prolonged use of PPI inhibitors. Active Medication ListPrilosec Otc 20 MG (TABLET, DELAYED RELEASE - ORAL) One DailyLisinopril 40 MG TABLET QdCrestor 20 MG (TABLET - ORAL) Qd Adverse Drug Reactions ReviewedLipitor Gi Side Effects Vaccination and Tlmzssxxyivi4867-88 Covid Booster Eyzwjtg3489-88 Sov1402-96 Vgacjbjnl3951-60 Jgxnygmuq2789-74 Covid Gvvftqk9951-94 Prevnar 13 Gc Surgical Yhkpvbt1976-70 Carcinoma Right Urjcfh4840-29 Lap Ocgwimgvldodsdo3404-05 Jaw Vafyisd6364-10 D+C Preventative Yfsvtyp7405/25/2023 ALBUMIN 4.4 G/DL N002/22/2023 MAMMOGRAM COLONOSCOPY (10 YEARS) DEXA SCAN04/30/2006 UPPER ENDOSCOPY Social HistoryDoes not smoke or drink. Works as medical insurance clerk. Family HistoryMother 83 with hx of carotid stenosis, ASHD and coronary bypass and dementiaFather 84 with hx of hypertension and LymphomaOne brother living in good health with hypertension. Ellie Ceja MD [address] [place] [address], [place], [address], [facility] [employer] 05/29/2024 10:59:18 12/04/2024 text/html Patient Name: Tahir Bro Bretate Of Service: November ( 12.04.2024 ): 1955 Age: 69 Vital Signs:Blood Pressure: Sitting Rt. Arm 138/78Pulse: Sitting 78 /min and RegularRespiratory Rate: 16Height 97 in or 2.5 mPulse Oximetry: 97 % at rest on no oxygen Chief Complaint: Addressed in HPI Problems or conditions discussed in the HPI were the only ones reviewed during the encounter.Only social and family history addressed in the HPI were reviewed during this encounter. Attendant(s): NoneConstitutional and Systemic Symptoms:generalized fatigue Medication Reconciliation: from medication list. History of Present Illness #1. Essential Hypertension: Stage: Stage I Interval Neurological Complaints no headaches, dizziness and weakness. No shortness of breath, orthopnea or cardiovascular symptoms. No other symptoms related to end organ damage. Pressure has been under excellent control. Currently normal. No other end organ symptoms or findings. Therapy reviewed regarding management of hypertension and includes salt restriction and Lisinopril. #2. Type II Hypercholesterolaemia: Currently taking medication and tolerating well. No interval complaints of any muscle pain or arthralgia. No significant liver changes with medications. Last lipid panel: excellent control. Therapy reviewed regarding treatment of cholesterol management and include diet and Crestor. #3. Hx of esophageal reflux currently stable. Hx of Complications: none The severity, duration and intensity of symptoms have increased. Frequency: most meals Treatment consists medications taken on intermittent basis. Current therapy includes Prilosec Otc. There has been no nausea. No change in he frequency or intensity of symptoms. Has had no melena. Has had no . Discussed use of H2 antagonists and the possibility of trying to reduce the frequency of the use of any PPI inhibitors and try H2 antagonists to see if symptoms can be controlled with lease intensive therapy since a number of complications are associated with chronic prolonged use of PPI inhibitors. Active Medication ListPrilosec Otc 20 MG (TABLET, DELAYED RELEASE - ORAL) One DailyLisinopril 40 MG TABLET QdCrestor 20 MG (TABLET - ORAL) Qd Adverse Drug Reactions ReviewedLipitor Gi Side Effects Vaccination and Immunization(X) 2023-08 INFLUENZA( ) 2020-10 PREVNAR 13 GC( ) 2021-08 COVID MODERNA( ) 2021-11 PNEUMOVAX( ) 2023-08 RSV(X) 2023-10 COVID BOOSTER MODERNA Surgical [id number] Carcinoma Right [id number] Lap Uohsqgiseuthdhs5970-34 Jaw Qgbrqeb0232-05 D+C Preventative Testing( ) 05/29/2024 Albumin 4.6 G/DL N( ) 02/22/2023 Mammogram 02/22/2025( ) 07/23/2015 Colonoscopy (10 Years) 07/23/2025(X) 10/29/2009 DEXA Scan 10/29/2011( ) 04/30/2006 Upper Endoscopy Social HistoryDoes not smoke or drink. Works as medical insurance clerk. Family HistoryMother 83 with hx of carotid stenosis, ASHD and coronary bypass and dementiaFather 84 with hx of hypertension and LymphomaOne brother living in good health with hypertension. Ellie Ceja MD [address] [place] [address], [facility] [address], [place], [address], [facility] [employer] 12/04/2024 15:07:08 03/11/2025 text/html Patient Name: Tahir romania Gerardo Bergman Of Service: Sunday ( 03.11.2025 ): 1955 Age: 69 There has been approximately a 12 lb weight gain since 05/29/2024. This represents approximately a 7.5% change in weight. Weight change attributable to lifestyle changes. Vital Signs:Blood Pressure: Sitting Rt. Arm 160/100Pulse: Sitting 97 /min and RegularRespiratory Rate: 16Height 61.5 in or 1.6 mWeight 172 lb or 78.0 kgBMI 32.0Temperature: 97 F or 36.1 CPulse Oximetry: 98 % at rest on no oxygen Chief Complaint: Addressed in HPI Problems or conditions discussed in the HPI were the only ones reviewed during the encounter.Only social and family history addressed in the HPI were reviewed during this encounter. Attendant(s): NoneConstitutional and Systemic Symptoms:none Medication Reconciliation: from medication list. [id number]: Venous Doppler negative for any DVT. History of Present Illness #1. Several month history of pain left posterior leg consistent with sciatica. Was being seen by chiropractic physician and doing reasonably well. More recently has had more pain and discomfort in the posterior popliteal fossa with some radiation down into the lower leg. A venous Doppler done today showed a moderate size Dumont's cyst which may soon some associated rupture. Is clinically doing well otherwise. Was negative for any type of DVT.: Active Medication ListPrilosec Otc 20 MG (TABLET, DELAYED RELEASE - ORAL) One DailyLisinopril 40 MG TABLET QdCrestor 20 MG (TABLET - ORAL) QdVitamin B12 DailyCaltrate 600 With D DailyMetamucil Daily Adverse Drug Reactions ReviewedLipitor Gi Side Effects Vaccination and Immunization(X) 2023-08 INFLUENZA( ) 2020-10 PREVNAR 13 GC( ) 2021-08 COVID MODERNA( ) 2021-11 PNEUMOVAX( ) 2022- RSV(X) 2023-10 COVID BOOSTER MODERNA Surgical [id number] Carcinoma Right Tsiuex8454-03 Lap Xvcovcxcaqlbiib3286-49 Jaw Zpheefr3271-96 D+C Preventative Testing( ) 03/09/2025 Mammogram 03/09/2027( ) 12/08/2024 Albumin 4.4 G/DL N( ) 12/04/2024 DEXA Scan 12/04/2026( ) 07/23/2015 Colonoscopy (10 Years) 07/23/2025( ) 04/30/2006 Upper Endoscopy Social HistoryDoes not smoke or drink. Works as medical insurance clerk. Family HistoryMother 83 with hx of carotid stenosis, ASHD and coronary bypass and dementiaFather 84 with hx of hypertension and LymphomaOne brother living in good health with hypertension. Ellie Ceja MD [address] [facility], [place] [address], [place], [address], [facility] [employer] 03/11/2025 17:02:18 OBGyn Episode No OBEpisode recorded.
--- OUTSIDE RECORDS SUMMARY | 2025-04-11 12:17 | XMS_ITS | Encounter Summary ---
Author Organization [facility] Address 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) Social History Tobacco Use Types Packs/Day Years Used Date Smoking Tobacco: Never Assessed Comments Unknown Sex and Gender Information Value Date Recorded Sex Assigned at Female 10/03/2024 4:52 PM PATIENT REGISTRATION REP Legal Sex Female 5:42 AM PATIENT REGISTRATION REP Gender Identity Female 10/03/2024 4:52 PM PATIENT REGISTRATION REP Sexual Orientation Not on file documented as of this encounter Plan of Treatment Not on file documented as of this encounter Visit Diagnoses Diagnosis Malignant neoplasm of upper-outer quadrant of female breast (CMS/HCC) Malignant neoplasm of upper-outer quadrant of female breast documented in this encounter Care Teams Fire Tender Relationship Specialty Start Date End Date John Ceja MD [address] [facility] [address] [place] [address] PCP - General 01/20/09 documented as of this encounter
--- OUTSIDE RECORDS SUMMARY | 2025-04-11 12:17 | XMS_ITS | Encounter Summary ---
Author Organization [employer] Address 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 (CMS/HCC) Social History Tobacco Use Types Packs/Day Years Used Date Smoking Tobacco: Never Alcohol Use Standard Drinks/Week Comments Yes 0 (1 standard drink = 0.6 oz pur e alcohol) rare Comments No Sex and Gender Information Value Date Recorded Sex Assigned at Female 10/03/2024 4:52 PM TURN DOWN WORKER Legal Sex Female 5:42 AM TURN DOWN WORKER Gender Identity Female 10/03/2024 4:52 PM TURN DOWN WORKER Sexual Orientation Not on file documented as of this encounter Plan of Treatment Not on file documented as of this encounter Visit Diagnoses Diagnosis Malignant neoplasm of upper-outer quadrant of female breast (CMS/HCC) Malignant neoplasm of upper-outer quadrant of female breast documented in this encounter Care Teams Lining Machine Tender Relationship Specialty Start Date End Date John Ceja MD [address] [facility] [address] [place] [id number] PCP - General 01/20/09 documented as of this encounter
--- OUTSIDE RECORDS SUMMARY | 2025-04-11 12:18 | XMS_ITS | Clinical Summary ---
Author Organization [facility] Address [address] [place] [address] Phone Care Team Providers Care Chief Radiologic Technologist Name Role Phone Provider, None Primary Care [...] to complete this topic Insurance Care Teams Chief Radiologic Technologist Relationship Specialty Start Date End Date Provider, None [place] PCP - General 02/19/20
--- OUTSIDE RECORDS SUMMARY | 2025-04-11 12:18 | XMS_ITS | Clinical Summary ---
Author Organization [facility] Address [address] [place] [address] Phone Care Team Providers Care Local Sales Associate Name Role Phone John Ceja MD Primary Care Provider [phone] Allergies No known active allergies Medications omeprazole [...] Muscle Pain in legs since chemo 05/14/2009 Immunizations Immunization Administration Dates Next Due (SPIKEVAX) [...] Sex Assigned at Female 10/03/2024 4:52 PM WORKERS' COMPENSATION HEARINGS OFFICER Legal Sex Female 5:42 AM WORKERS' COMPENSATION HEARINGS OFFICER Gender Identity Female 10/03/2024 4:52 PM WORKERS' COMPENSATION HEARINGS OFFICER Sexual Orientation Not on file Occupation Industry [...] Health Maintenance Due Date Last Done Comments DTAP/TDAP/TD VACCINES (1 - Tdap) 1973 FIT-DNA [...] ASSESSMENT: BI-RADS CATEGORY 1: Negative DICTATION LOCATION: [facility] 03/06/2024 4:46 PM CDT BILATERAL DIAGNOSTIC DIGITAL [...] ASSESSMENT: BI-RADS CATEGORY 1: Negative DICTATION LOCATION: [facility] us Milla Quinn DO MAMMO ORDERABLES Final Resu lt from Last 3 Months or Most Recently Relevant to Health Maintenance Insurance MEDICARE PART A AND B [facility] [employer] Care Teams Local Sales Associate Relationship Specialty Start Date End Date John Ceja MD [address] [facility] [address] [place] [id number] PCP - General 01/20/09
--- OUTSIDE RECORDS SUMMARY | 2025-04-11 12:18 | XMS_ITS | Encounter Summary ---
Author Organization [facility] Address [address] [place] [address] Care Team Providers Care Chore Tender Name Role Phone John Ceja MD Primary Care Provider [phone] Encounter Details Date Type Department Care Team (Latest Contact Info) Description 04/26/2009 Outpatient Historical [facility] Radiation Oncology [place] [address] [place] [address] Maty Townsend MD NO ADDRESS ON FILE Malignant Neoplasm of Upper-Outer Quadrant of Female Breast (CMS/HCC) Social History Tobacco Use Types Packs/Day Years Used Date Smoking Tobacco: Never Assessed Comments Unknown Sex and Gender Information Value Date Recorded Sex Assigned at Female 10/03/2024 4:52 PM WIRE PREPARATION MACHINE TENDER Legal Sex Female 5:42 AM WIRE PREPARATION MACHINE TENDER Gender Identity Female 10/03/2024 4:52 PM WIRE PREPARATION MACHINE TENDER Sexual Orientation Not on file documented as of this encounter Plan of Treatment Not on file documented as of this encounter Visit Diagnoses Diagnosis Malignant neoplasm of upper-outer quadrant of female breast (CMS/HCC) Malignant neoplasm of upper-outer quadrant of female breast documented in this encounter Care Teams Chore Tender Relationship Specialty Start Date End Date John Ceja MD [address] [facility] [address] [place] [address] PCP - General 01/20/09 documented as of this encounter
== END 2025-04-11 12:14 | disposition home or self-care (01) ==
PROVIDERS: PCP Internal Medicine; Visit Provider Orthopaedic Surgery
DX: M25.462 Effusion, left knee (principal)
CPT/HCPCS: 73721

== ENCOUNTER 2025-06-30 10:53 | Outpatient (RCR) | payer MEDICARE, BC, SELFPAY ==
[2025-06-30 11:01] VITALS: BMI 32.0
--- NOTE | 2025-06-30 12:53 | PCDIET ---
Nutrition consult complete. BRYCE
== END 2025-09-21 09:56 | disposition home or self-care (01) ==
LOC: ANHDMC 10:53
PROVIDERS: PCP Internal Medicine; Visit Provider Internal Medicine
DX: E11.9 Type 2 diabetes mellitus without complications (principal); Z71.3 Dietary counseling and surveillance
CPT/HCPCS: 97802